=== PATIENT | female | born 1960 | race Caucasian/White ===

== ENCOUNTER 2017-08-31 05:57 | Inpatient (IN) | payer BC ==
--- NOTE | 2017-08-29 10:01 | HPE ---
DATE OF ADMISSION: 08/31/2017 ADMITTING DIAGNOSIS: Recurrent sigmoid diverticulitis. HISTORY OF THE PRESENT ILLNESS: The patient is a 57-year-old woman who was seen recently in the office for evaluation of recurrent diverticulitis. She has had several prior colonoscopies with most recent in February of 2015. She had some hyperplastic polyps biopsied. She has been noted to have diverticulosis and this was confirmed on the 2014 colonoscopy. She reports that in April of 2017 she was admitted to the hospital and placed on antibiotics for a diagnosis of diverticulitis. She had a followup CT scan after this and the treating physicians elected to continue her antibiotics for an additional 10 days because of concerns about continued inflammation. At one point, she was diagnosed with Clostridium difficile and this required additional treatment. Then, on the 07 of June, she was admitted at [facility] again with a diagnosis of diverticulitis. She remained in the hospital for 5 days on intravenous (IV) antibiotics. The patient has continued to have multiple bowel movements per day , which are small but formed. She has described intermittent left flank and left lower quadrant abdominal discomfort. Because of her recurring episodes of sigmoid diverticulitis, she was referred for consideration of resection. After discussing the option of surgery versus continued watchful waiting and treatment as necessary, the patient has decided to proceed with a laparoscopic sigmoid colectomy. She is scheduled for surgery on 08/31/2017. She will perform a full antibiotic and mechanical bowel prep in advance the day before. ALLERGIES: Patient reports an allergy to TETRACYCLINE. Her current medications include: - gemfibrozil 600 mg by mouth twice daily - an iron supplement twice daily - ibuprofen on an as-needed basis for discomfort - Zantac 150 mg by mouth twice daily - She is on a number of vitamins and supplements including cranberry extract, goji ramos extract, melatonin, probiotic, Stanback headache powders, vitamin B12 , and vitamin D. - She had received prescriptions for Flagyl and neomycin and Suprep for her preoperative mechanical and antibiotic bowel preparation. Medical history is significant for obstructive sleep apnea and she has a continuous positive airway pressure (CPAP) device for use. She has a history of gastroesophageal reflux. She has had a history of ovarian cancer. She has diverticulosis, hypercholesterolemia and hypertension. She has some degenerative disc disease. Surgical history is significant for a hysterectomy. She has had a tubal ligation. She has had colonoscopies in 2011, 2012, and 2014 and underwent a laparoscopic cholecystectomy in 2015. FAMILY HISTORY: Her father had heart disease and her mother was diagnosed with colon cancer at approximately age 74. SOCIAL HISTORY: Patient is a current smoker smoking approximately five cigarettes per day. She denies any alcohol use. She is . REVIEW OF SYSTEMS: Patient denies any weight gain or loss. She has had no fevers or chills. She denies any chest pain or palpitations. She has had no chronic cough, wheezing or shortness of breath. She denies any dysuria or hematuria. She does have some back discomfort at times. She denies any chronic severe headaches or seizures. There is no history of deep venous thrombosis (DVT) or pulmonary embolism. Physical exam shows that she is approximately 61 inch in height with a weight of approximately 78 kg, giving her a body mass index (BMI) of 32. She is alert, oriented and cooperative. She has anicteric sclerae. The mucous membranes are moist. The neck is supple without mass or adenopathy. She has no cervical bruit. Heart exam shows a regular rate and rhythm. The lungs are clear to auscultation bilaterally. The abdomen is mildly obese. The abdomen is soft with active bowel sounds. She has an old low abdominal scar consistent with her prior surgery. There is no sign of hernia. No masses appreciated. Her skin is warm and dry. Neurologically, she is alert and oriented times three, and the patient's affect is appropriate. IMPRESSION: 1. Diverticulosis with recurrent diverticulitis. 2. Hypertension. 3. Hypercholesterolemia. 4. Obstructive sleep apnea. 5. Gastroesophageal reflux disease. 6. Degenerative disc disease. 7. History of ovarian cancer. 8. History of Clostridium difficile colitis. PLAN: Patient is being admitted to undergo a laparoscopic sigmoid colectomy. She has performed a mechanical and antibiotic bowel preparation at home. In the office, she was counseled for the procedure to include indications for surgery and the risks. Risks include but are not limited to bleeding, infection, scarring, adverse drug reaction, need for further surgery, injury to internal organ, and anastomotic leak, and hernia. She had an opportunity to ask questions and desires to proceed with surgery as it was outlined. She is now being admitted for said surgery. IVETH
[~2017-08-31] VITALS: Ht 154.9 cm; Wt 80.4 kg
[~2017-08-31 05:57] MED LIST: AUGM875T28 PO; BENA25CA PO; CALC500T36 PO; CETI10TA PO; CIPR-249 PO; CRANCAP4 PO; CYAN25TA PO; DULC5TAB PO; EPIP0.3I10 IM; FISH1000 PO; FLAG500T PO; GEMF600T PO; HYDR-3363 PO; HYDRO50TAB PO; IRON65TA PO; MELA5TAB17 PO; MULTCAP PO; PERC5TAB12 PO; PRED10PA PO; PRED10TA2 PO; PROBCAP4 PO; RANI150T PO; VITA10002 PO; VITA1CAP40 PO; ZOFR20TA PO; [UNRECOGNIZED DRUG - CODE] PO; [UNRECOGNIZED DRUG - CODE] PO; [UNRECOGNIZED DRUG - CODE] PO; [UNRECOGNIZED DRUG - OTHER] PO
[2017-08-31] MEDS ORDERED: LR 1,000 ML IV SCH ×2 (06:00→12:45)
[2017-08-31] MEDS ORDERED: LIDOCAINE 1% MDV 20ML VIAL SC ONE (06:00)
[2017-08-31] MEDS ORDERED: ERTAPENEM SODIUM 1 GM in NS MINI-BAG PLUS 50 ML IV ONE (06:00)
[2017-08-31] MEDS ORDERED: ALVIMOPAN 12 MG CAPSULE (ENTEREG) PO ONE (06:00)
[2017-08-31] MEDS ORDERED: LR 1,000 ML IV ONE (06:15)
[2017-08-31] MEDS ORDERED: BUPIVACAINE HCL 0.25% 30 ML VIAL As Ordered ONE (06:47)
[2017-08-31] MEDS ORDERED: fentaNYL 250 MCG/5 ML INJECTION (J3010) As Ordered ONE (07:58)
[2017-08-31] MEDS ORDERED: PROPOFOL 500 MG/50 ML VIAL As Ordered ONE (07:58)
[2017-08-31] MEDS ORDERED: MIDAZOLAM INJ 2 MG/2 ML VIAL (J2250) As Ordered ONE (07:58)
[2017-08-31] MEDS ORDERED: fentaNYL 100 MCG/2 ML INJECTION (J3010) As Ordered ONE ×3 (07:58→12:18)
[2017-08-31] MEDS ORDERED: PHENYLephrine HCL 500 MCG/5 ML (100MCG/ML) SYRINGE (J2370) As Ordered ONE (08:07)
[2017-08-31] MEDS ORDERED: VECURONIUM BROMIDE 10 MG VIAL As Ordered ONE ×2 (08:53→09:31)
[2017-08-31] MEDS ORDERED: LIDOCAINE 2% INJ 100 MG/5 ML SDV (FOR ANES.) As Ordered ONE (08:53)
[2017-08-31] MEDS ORDERED: dexameTHASONE 4 MG/ML 1ML VIAL (J1100) As Ordered ONE (08:54)
[2017-08-31] MEDS ORDERED: ONDANSETRON 4MG/2ML VIAL (J2405) As Ordered ONE ×2 (08:54→11:15)
[2017-08-31] MEDS ORDERED: METOCLOPRAMIDE INJ 10MG/2ML VIAL (J2765) As Ordered ONE (08:54)
[2017-08-31] MEDS ORDERED: ePHEDrine SULFATE 25 MG/5 ML(5MG/ML) SYRINGE As Ordered ONE (08:59)
[2017-08-31] MEDS ORDERED: HYDROmorphone HCL 2 MG/ML 1ML VIAL (J1170) As Ordered ONE (09:58)
[2017-08-31] MEDS ORDERED: GLYCOPYRROLATE INJ 0.2 MG/ML 2 ML VIAL As Ordered ONE (11:15)
[2017-08-31] MEDS ORDERED: NEOSTIGMINE 10 MG/10 ML VIAL (J2710) As Ordered ONE (11:15)
[2017-08-31] MEDS ORDERED: METOCLOPRAMIDE INJ 10MG/2ML VIAL (J2765) IV PRN ×2 (11:45→12:45)
[2017-08-31] MEDS ORDERED: ONDANSETRON 4MG/2ML VIAL (J2405) IV PRN ×2 (11:45→12:45)
[2017-08-31] MEDS ORDERED: ACETAMINOPHEN TAB 650MG DOSE (2X325MG) PO PRN (11:45)
[2017-08-31] MEDS: MORPHINE 2 MG/ML 1ML SYRINGE IV PRN ×4 (12:20→12:35)
[2017-08-31] MEDS ORDERED: fentaNYL 100 MCG/2 ML INJECTION (J3010) IV PRN (12:45)
[2017-08-31] MEDS ORDERED: MORPHINE 2 MG/ML 1ML SYRINGE IV PRN (12:45)
[2017-08-31] MEDS ORDERED: PERCOCET 5MG/325MG TAB PO PRN (12:45)
[2017-08-31 13:00] VITALS: BP 122/72
[2017-08-31 13:30] VITALS: BP 114/56
[2017-08-31 14:00] VITALS: BP 117/57
[2017-08-31] MEDS: LR 1,000 ML IV SCH (14:02)
[2017-08-31 15:00] VITALS: BP 110/59
[2017-08-31] MEDS: KETOROLAC 30 MG/ML VIAL (J1885) IV SCH ×2 (15:29→18:39)
[2017-08-31 16:00] VITALS: BP 111/56
[2017-08-31] MEDS: NORCO, ANEXSIA 5/325MG TABLET (HYDROcodone/ACETAMINOPHEN) PO PRN (19:34)
--- NOTE | 2017-08-31 20:07 | RO ---
DATE OF PROCEDURE: 08/31/2017 PREOPERATIVE DIAGNOSIS: Sigmoid diverticulosis with history of recurrent diverticulitis. POSTOPERATIVE DIAGNOSES: 1. Sigmoid diverticulosis with history of recurrent diverticulitis. 2. Ventral incisional hernia. PROCEDURE PERFORMED: Laparoscopic sigmoid colectomy with a coloproctostomy, repair of ventral incisional hernia, and flexible sigmoidoscopic exam of anastomosis. SURGEON: Dr. Valentín Mcallister UPHOLSTERY DEPARTMENT SUPERVISOR: Dr. Arias ANESTHESIA: General. INDICATIONS FOR PROCEDURE: The patient is a 57-year-old woman who has had several episodes of diverticulitis involving her sigmoid colon, which shows marked thickening and significant diverticulosis. She is now for a laparoscopic sigmoid colectomy. DESCRIPTION OF PROCEDURE: The patient was placed under general endotracheal anesthesia. She was placed in a low lithotomy position with her legs in padded leg holders. Thromboembolism deterrents (TEDs) and sequentials were utilized. A Seaman catheter was inserted. Digital rectal examination revealed a small amount of liquid stool with some particles within the rectum. The anus was gently dilated, and there were no palpable lesions. The patient's abdomen and perineum were then prepped and draped sterilely. Local anesthesia was achieved at the trocar sites prior to insertion. A short supraumbilical midline incision was made through the old scar from her laparoscopic cholecystectomy. In deepening the incision into the abdominal wall , the patient was found to have a small incisional hernia. The hernia sac was dissected free from surrounding subcutaneous fat and then the hernia sac was excised and the hernia defect, which was approximately 1-1/2 to 2 cm was used as the port site for a 10 mm Jessi cannula. The abdomen was inflated with carbon dioxide, and the laparoscope was placed. Initial examination showed the liver to be markedly yellowed with blunted corners consistent with significant fibrofatty infiltration. There were a few reddened spots on the liver that appeared almost consistent with small telangiectasis. There was abundant omental fat covering the bowel. The patient was tilted to a steep Trendelenburg position. A 5 mm trocar was placed in the right midabdomen about at the level of the umbilicus and a 12 mm trocar was placed low in the right lower quadrant. Graspers were inserted. The omentum was elevated out of the lower abdomen, and the small bowel was also elevated out of the pelvis. Inspection of the colon revealed that there was a segment perhaps 15-20 cm in length of the sigmoid colon that was quite thickened. There were some filmy adhesions of this to the lateral pelvic sidewall on the left. In at least one area, there appeared to be some ongoing mild acute inflammation. There were surprisingly few adhesions in the pelvis. There was a fairly abrupt transition zone from the more normal appearing proximal sigmoid and descending colon to this thickened fibrotic area. The Harmonic scalpel was used to take down the adhesions along the lateral aspect of the sigmoid colon. The patient was found to have a small fibrotic appearing ovary adherent along the sidewall and had a matching ovary essentially on the right side of the pelvis. The dissection was carried up along the lateral aspect of the descending colon dividing the peritoneal reflection and mobilizing the descending colon medially. This was carried up to about the mid descending colon level. Attention was then turned distally. I identified the approximate point of transition from the sigmoid to the rectum. The peritoneum was scored and the mesentery of the rectosigmoid was partially opened in this area using the Harmonic scalpel to crsitina the distal extent of our anticipated dissection. The sigmoid was then elevated, and the point was selected for the proximal transection several centimeters proximal to the area of thickening of the sigmoid. The mesentery was opened using the Harmonic scalpel, and the colon was divided with an [place] stapler with a green load. The dissection was then carried distally using the Harmonic scalpel, freeing the sigmoid colon. A portion of the mesentery was taken with the bowel but as this was not a cancer operation, no attempt was made to resect the full extent of the mesentery. The dissection was carried distally with the Harmonic scalpel. Care was taken to ensure that there was no bleeding after vessels were divided. The dissection proceeded down to the rectosigmoid junction which had been marked previously. The mesentery in this area was opened to expose the wall of the rectum circumferentially. The proximal rectum was then divided again with a load of the linear cutter [place] stapler with a green load. The specimen was pulled up out of the pelvis, and the pelvis was irrigated. Some fibrofatty tissue along the staple line at the end of the rectum was then peeled back to expose the rectal wall to facilitate the anastomosis. Attention was then turned to the remaining sigmoid colon. There did not appear, at this time, to be adequate length to perform the anastomosis without tension. Therefore, the dissection was carried further up along the lateral aspect of the sigmoid and descending colons. This required repositioning the patient to a head-up position to expose this area more effectively. The dissection was carried all the way up to the splenic flexure and the colon was mobilized more thoroughly medially. Some of the mesentery of the remaining sigmoid colon was then divided to allow for greater mobility. After this had been performed, it was clear that there was adequate length for the anastomosis. The specimen and the end of the sigmoid colon were then grasped with graspers. The abdomen was deflated and the Jessi cannula was removed. The incision was extended inferiorly to a total distance of perhaps 7 cm. A Mobius retractor was inserted. The specimen was delivered through the wound and set aside to be sent for permanent pathology. The end of the sigmoid was then brought through the wound. Some fibrofatty tags at the end of the colon were removed. The staple line was excised. There were a couple of small diverticula that were incorporated into the opening of the colon. The colon was gently sized with a 29 mm EEA sizer and a 29 mm stapler was selected. A pursestring suture of #2-0 Prolene was placed in the end of the colon, and the anvil was then inserted and the pursestring tied down. A second pursestring was placed to reinforce the bowel around the post of the anvil. This was then irrigated and then reduced into the abdomen. At this point, we changed to the closing tray and the surgical team all changed gown and gloves. The Mobius retractor was removed. The fascia along the midline was closed with interrupted simple sutures of #1 Vicryl. The abdomen was then reinflated, and the patient was repositioned into a steep Trendelenburg position. The anvil of the stapler was then grasped with an anvil grasper. The pelvis was cleared of a small amount of blood. I moved to the perineum while Dr. Arias managed the abdominal portion of the procedure at this point. The 29 mm EEA stapler was inserted into the rectum and advanced up to the end of the rectal stump. The post of the stapler was advanced adjacent to the staple line and the anvil was attached. The stapler was then closed and fired. The stapler was removed and inspection revealed two excellent tissue doughnuts. At this point, the patient was taken slightly out of the Trendelenburg position. The pelvis was filled with saline. I inserted a colonoscope into the anus and advanced this above the anastomosis. A bowel clamp was placed by Dr. Arias to prevent air insufflation more proximally. The anastomosis was clearly identified. There was no active bleeding. The area was irrigated of a small amount of loose, greenish stool. The anastomosis appeared good. With insufflation of air, there was no leakage of air noted within the pelvis. The air was then removed. The anastomosis appeared to lie at approximately 17 cm from the anal verge. The colonoscope was removed. I changed gown and gloves and returned to the abdomen. The pelvis was irrigated and there was no bleeding. The patient was returned to a flat position. An Endo Close device was used to place a #1 Vicryl suture in the inner fascia and peritoneum of the 12-mm port site in the right lower quadrant. The abdomen was then vented through the single remaining 5 mm port in the right midabdomen. This was then removed. The incisions were then closed with buried #4-0 Vicryl and Steri-Strips. Light dressings were applied. The patient tolerated the procedure well without apparent complication. She was awakened in the operating room, extubated and moved to the recovery room in stable condition. IVETH
[2017-08-31] MEDS: GEMFIBROZIL 600 MG TAB PO SCH (21:47)
[2017-08-31] MEDS: ALVIMOPAN 12 MG CAPSULE (ENTEREG) PO SCH (21:47)
[2017-08-31] MEDS: FAMOTIDINE 20 MG TAB PO SCH (21:48)
[2017-08-31] MEDS: ENOXAPARIN 40 MG/0.4 ML SYRINGE (J1650) SC SCH (21:49)
[2017-08-31 22:00] VITALS: BP 114/67
[2017-09-01] MEDS: KETOROLAC 30 MG/ML VIAL (J1885) IV SCH ×2 (01:23→06:31)
[2017-09-01] MEDS: LR 1,000 ML IV SCH (01:23)
[2017-09-01 02:00] VITALS: BP 111/65
[2017-09-01 06:00] VITALS: BP 125/77
[2017-09-01 07:41] LABS: BASO % 0.5 % (0.0-1.0); EOS # 0.1 10^3/uL (0.0-0.50); EOS % 1.4 % (0.0-3.0); IMMATURE GRANULOCYTE % 0.2 % (0-0); LYMPH # 2.1 10^3/uL (1.5-4.5); MEAN CORPUSCULAR HEMOGLOBIN 32.7 pg (27.0-33.0); MEAN CORPUSCULAR HGB CONC 33.1 g/dl (32.0-36.5); MEAN CORPUSCULAR VOLUME 98.6 fl (80.0-96.0); MONO # 0.7 10^3/uL (0.0-0.8); MONO % 8.4 % (0.0-5.0); NEUTROPHILS # 5.8 10^3/uL (1.8-7.7); NEUTROPHILS % 65.5 % (36.0-66.0); PLATELET COUNT, AUTOMATED 214 10^3/uL (150-450); RED CELL DISTRIBUTION WIDTH 13.1 % (11.5-14.5); WHITE BLOOD COUNT 8.8 10^3/uL (4.0-10.0)
[2017-09-01 07:59] LABS: ANION GAP 6 MEQ/L (8-16); BLOOD UREA NITROGEN 16 MG/DL (7-18); CALCIUM LEVEL 8.4 MG/DL (8.5-10.1); CARBON DIOXIDE LEVEL 29 MEQ/L (21-32); CHLORIDE LEVEL 107 MEQ/L (98-107); CREATININE FOR GFR 0.76 MG/DL (0.55-1.02); GLOMERULAR FILTRATION RATE > 60.0 (>51); GLUCOSE, FASTING 134 MG/DL (70-105); POTASSIUM SERUM 4.1 MEQ/L (3.5-5.1); SODIUM LEVEL 142 MEQ/L (136-145)
[2017-09-01] MEDS: ALVIMOPAN 12 MG CAPSULE (ENTEREG) PO SCH ×2 (08:44→21:01)
[2017-09-01] MEDS: FAMOTIDINE 20 MG TAB PO SCH ×2 (08:44→21:01)
[2017-09-01] MEDS: GEMFIBROZIL 600 MG TAB PO SCH ×2 (08:44→21:01)
[2017-09-01] MEDS: NORCO, ANEXSIA 5/325MG TABLET (HYDROcodone/ACETAMINOPHEN) PO PRN ×3 (09:03→18:43)
[2017-09-01 10:00] VITALS: BP 133/75
[2017-09-01 14:00] VITALS: BP 152/72
--- NOTE | 2017-09-01 15:03 | IPN ---
DATE: 09/01/2017 HISTORY: The patient is now postop day #1 from a laparoscopic sigmoid colectomy for diverticulosis with recurrent episodes of diverticulitis. She appears to be doing excellently postop with minimal discomfort and is tolerating liquids well with no nausea or vomiting and she has had a return of flatus. VITAL SIGNS: The patient is afebrile. Her pulse this morning is 82 with a blood pressure of 133/75. Room air saturation is normal. Intake and output shows 3900 in yesterday with 1400 out. She has a urine output recorded this morning of 150 , but she probably has a liter in her Seaman bag on the side of the bed right now. PHYSICAL EXAMINATION: The patient is alert, oriented and comfortable. Heart exam shows a regular rate and rhythm. The lungs are clear. The abdomen is obese, but soft. She has active bowel sounds. Her incisions are clean with no evidence of hematoma. LABS: Laboratory studies show a white count of 9, hemoglobin 12, hematocrit 36 and a normal differential count. Her chemistry profile this morning is normal except for a fasting glucose of 134. Interestingly, her pathology report is already back and she had a hernia sac which was interpreted as a hernia sac and her colon was diagnosed as diverticulosis and diverticulitis. IMPRESSION: Excellent progress postop day #1 from laparoscopic sigmoid colectomy. PLAN: The patient's diet will be advanced to regular as tolerated. Her Seaman catheter will be removed and her IV fluid stopped. I counseled her that she will likely be ready for discharge in the next 1-2 days if all goes well. She should be up ambulating at least several times today. IVETH
[2017-09-01 18:00] VITALS: BP 142/83
[2017-09-01] MEDS: ENOXAPARIN 40 MG/0.4 ML SYRINGE (J1650) SC SCH (21:01)
[2017-09-01 22:00] VITALS: BP 138/69
[2017-09-02 02:00] VITALS: BP 133/71
[2017-09-02 06:00] VITALS: BP 131/91
[2017-09-02] MEDS: NORCO, ANEXSIA 5/325MG TABLET (HYDROcodone/ACETAMINOPHEN) PO PRN ×2 (06:07→10:33)
[2017-09-02] MEDS: FAMOTIDINE 20 MG TAB PO SCH (08:14)
[2017-09-02] MEDS: ALVIMOPAN 12 MG CAPSULE (ENTEREG) PO SCH (08:14)
[2017-09-02] MEDS: GEMFIBROZIL 600 MG TAB PO SCH (08:14)
[2017-09-02] MEDS ORDERED: NORCOTAB PO (09:04)
[2017-09-02 10:00] VITALS: BP 131/81
== END 2017-09-02 13:49 | disposition home or self-care (01) | DRG 221 ==
LOC: M OR 05:57 → M MSPAV 13:11
PROVIDERS: ADMIT Surgery; ATTEND Surgery
PROC: 0DTN4ZZ Resection of Sigmoid Colon, Percutaneous Endoscopic Approach (ICD-10-PCS; 2017-08-31)
PROC: 0WQF4ZZ Repair Abdominal Wall, Percutaneous Endoscopic Approach (ICD-10-PCS; principal; 2017-08-31 07:30)
DX: K57.32 Diverticulitis of large intestine without perforation or abscess without bleeding (principal); E66.9 Obesity, unspecified; I10 Essential (primary) hypertension; Z68.32 Body mass index [BMI] 32.0-32.9, adult; Z79.899 Other long term (current) drug therapy; Z88.8 Allergy status to other drugs, medicaments and biological substances; G47.33 Obstructive sleep apnea (adult) (pediatric); K21.9 Gastro-esophageal reflux disease without esophagitis; Z85.43 Personal history of malignant neoplasm of ovary; E78.00 Pure hypercholesterolemia, unspecified; F17.210 Nicotine dependence, cigarettes, uncomplicated; K43.2 Incisional hernia without obstruction or gangrene

== ENCOUNTER 2018-01-22 15:31 | Emergency (ER) | payer BC ==
[2018-01-22] MEDS ORDERED: ONDANSETRON 4MG/2ML VIAL (J2405) IV (16:45)
[2018-01-22] MEDS ORDERED: MORPHINE 2 MG/ML 1ML SYRINGE (J2270) IV (16:45)
[2018-01-22] MEDS: GASTROGRAFIN SOLUTION 30ML PO (17:15)
[2018-01-22 17:30] LABS: PROTHROMBIN TIME 13.3 SECONDS (12.4-14.5)
[2018-01-22 17:31] LABS: BASO # 0.1 10^3/uL (0.0-0.2); BASO % 0.8 % (0.0-1.0); EOS # 0.2 10^3/uL (0.0-0.50); EOS % 1.8 % (0.0-3.0); HEMATOCRIT 41.7 % (36.0-47.0); HEMOGLOBIN 14.3 g/dl (12.0-16.0); IMMATURE GRANULOCYTE % 1.4 % (0-3.0); LYMPH # 2.4 10^3/uL (1.5-4.5); LYMPH % 25.3 % (24.0-44.0); MEAN CORPUSCULAR HEMOGLOBIN 32.3 pg (27.0-33.0); MEAN CORPUSCULAR HGB CONC 34.3 g/dl (32.0-36.5); MEAN CORPUSCULAR VOLUME 94.1 fl (80.0-96.0); MONO # 0.7 10^3/uL (0.0-0.8); MONO % 7.2 % (0.0-5.0); NEUTROPHILS # 5.9 10^3/uL (1.8-7.7); NEUTROPHILS % 63.5 % (36.0-66.0); PLATELET COUNT, AUTOMATED 273 10^3/uL (150-450); RED BLOOD COUNT 4.43 10^6/uL (4.00-5.40); RED CELL DISTRIBUTION WIDTH 12.7 % (11.5-14.5); WHITE BLOOD COUNT 9.3 10^3/uL (4.0-10.0)
[2018-01-22 17:35] LABS: ALBUMIN 4.3 GM/DL (3.2-5.2); ALBUMIN/GLOBULIN RATIO 1.26 (1.00-1.93); ALKALINE PHOSPHATASE 196 U/L (45-117); ALT/SGPT 64 U/L (12-78); ANION GAP 9 MEQ/L (8-16); AST/SGOT 64 U/L (7-37); BILIRUBIN,DIRECT 0.1 MG/DL (0.0-0.2); BILIRUBIN,TOTAL 0.3 MG/DL (0.2-1.0); BLOOD UREA NITROGEN 13 MG/DL (7-18); CALCIUM LEVEL 9.4 MG/DL (8.5-10.1); CARBON DIOXIDE LEVEL 24 MEQ/L (21-32); CHLORIDE LEVEL 108 MEQ/L (98-107); CREATININE FOR GFR 0.96 MG/DL (0.55-1.30); GLOMERULAR FILTRATION RATE > 60.0 (>51); GLUCOSE, FASTING 178 MG/DL (70-100); LIPASE 284 U/L (73-393); POTASSIUM SERUM 4.5 MEQ/L (3.5-5.1); SODIUM LEVEL 141 MEQ/L (136-145); TOTAL PROTEIN 7.7 GM/DL (6.4-8.2)
[2018-01-22] MEDS ORDERED: ISOVUE-370 76% 100ML VIAL (Q9967) As Ordered (18:13)
== END 2018-01-22 19:27 | disposition home or self-care (01) ==
LOC: M ED 15:31
DX: K42.9 Umbilical hernia without obstruction or gangrene (principal); K76.0 Fatty (change of) liver, not elsewhere classified; K57.30 Diverticulosis of large intestine without perforation or abscess without bleeding; D35.00 Benign neoplasm of unspecified adrenal gland; F17.200 Nicotine dependence, unspecified, uncomplicated; Z79.899 Other long term (current) drug therapy; Z88.1 Allergy status to other antibiotic agents; Z91.018 Allergy to other foods
CPT/HCPCS: Q9963

== ENCOUNTER 2018-02-13 05:49 | Inpatient (IN) | payer BC ==
[2018-02-13] MEDS ORDERED: LR 1,000 ML IV (06:15)
[2018-02-13] MEDS: LR 1,000 ML IV ×4 (06:15→20:24)
[2018-02-13 07:17] LABS: BEDSIDE GLUCOSE 158 MG/DL (70-105)
[2018-02-13] MEDS ORDERED: fentaNYL 250 MCG/5 ML INJECTION (J3010) As Ordered (08:00)
[2018-02-13] MEDS ORDERED: ROCURONIUM BROMIDE 50 MG/5 ML VIAL As Ordered ×2 (08:00→08:47)
[2018-02-13] MEDS ORDERED: ONDANSETRON 4MG/2ML VIAL (J2405) As Ordered (08:00)
[2018-02-13] MEDS ORDERED: LIDOCAINE 2% INJ 100 MG/5 ML SDV (FOR ANES.) As Ordered (08:00)
[2018-02-13] MEDS ORDERED: ePHEDrine SULFATE 25 MG/5 ML(5MG/ML) SYRINGE As Ordered (08:00)
[2018-02-13] MEDS ORDERED: KETOROLAC 60 MG/2 ML VIAL (J1885) As Ordered (08:00)
[2018-02-13] MEDS ORDERED: dexameTHASONE 4 MG/ML 1ML VIAL (J1100) As Ordered (08:00)
[2018-02-13] MEDS ORDERED: PROPOFOL 200 MG/20 ML VIAL As Ordered ×2 (08:00→10:30)
[2018-02-13] MEDS ORDERED: MIDAZOLAM INJ 2 MG/2 ML VIAL (J2250) As Ordered (08:00)
[2018-02-13] MEDS ORDERED: GLYCOPYRROLATE INJ 0.2 MG/ML 2 ML VIAL As Ordered ×2 (08:12)
[2018-02-13] MEDS ORDERED: NEOSTIGMINE 10 MG/10 ML VIAL (J2710) As Ordered (08:12)
[2018-02-13] MEDS: BUPIVACAINE HCL 0.25% 30 ML VIAL As Ordered (10:45)
[2018-02-13] MEDS ORDERED: PERCOCET 5MG/325MG TAB As Ordered (11:09)
[2018-02-13] MEDS ORDERED: fentaNYL 100 MCG/2 ML INJECTION (J3010) As Ordered (11:09)
[2018-02-13] MEDS ORDERED: NALBUPHINE HCL 10 MG/ML AMP (J2300) IV (11:15)
[2018-02-13] MEDS ORDERED: EPIDURAL/PCA KEYS XX (11:15)
[2018-02-13] MEDS ORDERED: GLUCOSE 4 GM CHEW TABLET PO (11:15)
[2018-02-13] MEDS ORDERED: GLUCAGON FOR INJ 1 MG VIAL (J1610) SC (11:15)
[2018-02-13] MEDS ORDERED: NALOXONE INJ 0.4 MG/1 ML VIAL (J2310) IV (11:15)
[2018-02-13] MEDS ORDERED: DEXTROSE 50% 50 ML SYRINGE IV (11:15)
[2018-02-13] MEDS ORDERED: ONDANSETRON 4MG/2ML VIAL (J2405) IV ×2 (11:15→11:30)
[2018-02-13] MEDS ORDERED: diphenhydrAMINE INJ 50MG/ML VIAL (J1200) IV (11:15)
[2018-02-13] MEDS: PERCOCET 5MG/325MG TAB PO ×2 (11:17→11:55)
[2018-02-13 11:20] LABS: BEDSIDE GLUCOSE 209 MG/DL (70-105)
[2018-02-13] MEDS ORDERED: fentaNYL 100 MCG/2 ML INJECTION (J3010) IV (11:30)
[2018-02-13] MEDS ORDERED: MORPHINE 1MG/ML IN 0.9% NACL 100ML IV BAG As Ordered (12:59)
[2018-02-13] MEDS: MORPHINE 1MG/ML IN 0.9% NACL 100ML IV BAG IV (13:13)
[2018-02-13] MEDS: HumaLOG INSULIN (NovoLOG) PER UNIT SC ×3 (13:15→20:47)
[2018-02-13 13:41] LABS: BEDSIDE GLUCOSE 199 MG/DL (70-105)
[2018-02-13] MEDS: ACETAMINOPHEN TAB 650MG DOSE (2X325MG) PO ×3 (14:13→23:20)
[2018-02-13] MEDS: CEFAZOLIN SOD 1 GM in APPROPRIATE DILUENT 1 EA IV (16:51)
[2018-02-13] MEDS: KETOROLAC 30 MG/ML VIAL (J1885) IV ×2 (17:01→23:00)
[2018-02-13 17:29] LABS: BEDSIDE GLUCOSE 204 MG/DL (70-105)
[2018-02-13] MEDS: DOCUSATE SODIUM 100 MG CAP PO (20:50)
[2018-02-13] MEDS: GEMFIBROZIL 600 MG TAB PO (20:50)
[2018-02-13 20:53] LABS: BEDSIDE GLUCOSE 150 MG/DL (70-105)
[2018-02-14] MEDS: ACETAMINOPHEN TAB 650MG DOSE (2X325MG) PO ×4 (02:54→23:50)
[2018-02-14] MEDS: KETOROLAC 30 MG/ML VIAL (J1885) IV ×4 (04:18→23:52)
[2018-02-14] MEDS: DOCUSATE SODIUM 100 MG CAP PO ×2 (08:52→20:43)
[2018-02-14] MEDS: CEFAZOLIN SOD 1 GM in APPROPRIATE DILUENT 1 EA IV ×2 (08:52)
[2018-02-14] MEDS: GEMFIBROZIL 600 MG TAB PO ×2 (08:52→20:43)
[2018-02-14] MEDS: HumaLOG INSULIN (NovoLOG) PER UNIT SC ×4 (08:53→21:00)
[2018-02-14 11:28] LABS: BEDSIDE GLUCOSE 131 MG/DL (70-105)
[2018-02-14 12:04] LABS: BEDSIDE GLUCOSE 141 MG/DL (70-105)
[2018-02-14 17:48] LABS: BEDSIDE GLUCOSE 162 MG/DL (70-105)
[2018-02-14] MEDS: LR 1,000 ML IV (21:21)
[2018-02-14] MEDS: ENOXAPARIN 40 MG/0.4 ML SYRINGE (J1650) SC (21:21)
[2018-02-14 21:29] LABS: BEDSIDE GLUCOSE 137 MG/DL (70-105)
[2018-02-15] MEDS: ACETAMINOPHEN TAB 650MG DOSE (2X325MG) PO (05:49)
[2018-02-15] MEDS: KETOROLAC 30 MG/ML VIAL (J1885) IV (05:49)
[2018-02-15 07:26] LABS: BASO % 0.5 % (0.0-1.0); EOS # 0.3 10^3/uL (0.0-0.50); EOS % 3.8 % (0.0-3.0); HEMATOCRIT 34.7 % (36.0-47.0); HEMOGLOBIN 11.2 g/dl (12.0-15.5); IMMATURE GRANULOCYTE % 0.4 % (0-3.0); LYMPH # 2.1 10^3/uL (1.5-4.5); LYMPH % 28.4 % (24.0-44.0); MEAN CORPUSCULAR HEMOGLOBIN 31.5 pg (27.0-33.0); MEAN CORPUSCULAR HGB CONC 32.3 g/dl (32.0-36.5); MEAN CORPUSCULAR VOLUME 97.7 fl (80.0-96.0); MONO # 0.7 10^3/uL (0.0-0.8); MONO % 10.2 % (0.0-5.0); NEUTROPHILS # 4.1 10^3/uL (1.8-7.7); NEUTROPHILS % 56.7 % (36.0-66.0); PLATELET COUNT, AUTOMATED 211 10^3/uL (150-450); RED BLOOD COUNT 3.55 10^6/uL (4.00-5.40); RED CELL DISTRIBUTION WIDTH 12.9 % (11.5-14.5); WHITE BLOOD COUNT 7.3 10^3/uL (4.0-10.0)
[2018-02-15] MEDS: HumaLOG INSULIN (NovoLOG) PER UNIT SC (07:30)
[2018-02-15] MEDS ORDERED: MORPHINE 4 MG/ML 1ML VIAL/SYRINGE (J2270) IV (07:45)
[2018-02-15 07:55] LABS: ANION GAP 4 MEQ/L (8-16); BLOOD UREA NITROGEN 21 MG/DL (7-18); CALCIUM LEVEL 9.2 MG/DL (8.5-10.1); CARBON DIOXIDE LEVEL 30 MEQ/L (21-32); CHLORIDE LEVEL 106 MEQ/L (98-107); CREATININE FOR GFR 0.84 MG/DL (0.55-1.30); GLOMERULAR FILTRATION RATE > 60.0 (>51); GLUCOSE, FASTING 127 MG/DL (70-100); POTASSIUM SERUM 4.4 MEQ/L (3.5-5.1); SODIUM LEVEL 140 MEQ/L (136-145)
[2018-02-15] MEDS ORDERED: ACETAMINOPHEN TAB 650MG DOSE (2X325MG) PO (08:00)
[2018-02-15] MEDS: DOCUSATE SODIUM 100 MG CAP PO ×2 (09:09→20:18)
[2018-02-15] MEDS: GEMFIBROZIL 600 MG TAB PO ×2 (09:09→20:18)
[2018-02-15] MEDS: metFORMIN (GLUCOPHAGE) 500 MG TAB PO ×2 (09:10→17:58)
[2018-02-15] MEDS: PERCOCET 5MG/325MG TAB PO ×3 (10:40→20:19)
[2018-02-15] MEDS: ENOXAPARIN 40 MG/0.4 ML SYRINGE (J1650) SC (22:00)
[2018-02-16] MEDS: PERCOCET 5MG/325MG TAB PO ×3 (00:51→10:33)
[2018-02-16] MEDS: metFORMIN (GLUCOPHAGE) 500 MG TAB PO (08:50)
[2018-02-16] MEDS: DOCUSATE SODIUM 100 MG CAP PO (08:50)
[2018-02-16] MEDS: GEMFIBROZIL 600 MG TAB PO (08:50)
== END 2018-02-16 10:42 | disposition home or self-care (01) | DRG 227 ==
LOC: M SDC 05:49 → M PED 12:55
PROVIDERS: Surgery
PROC: 0WUF0JZ Supplement Abdominal Wall with Synthetic Substitute, Open Approach (ICD-10-PCS; principal; 2018-02-13 07:31)
PROC: 0WUF07Z Supplement Abdominal Wall with Autologous Tissue Substitute, Open Approach (ICD-10-PCS; 2018-02-13 07:31)
PROC: 0KNL0ZZ Release Left Abdomen Muscle, Open Approach (ICD-10-PCS; 2018-02-13 07:31)
PROC: 0KNK0ZZ Release Right Abdomen Muscle, Open Approach (ICD-10-PCS; 2018-02-13 07:31)
DX: K43.2 Incisional hernia without obstruction or gangrene (principal); E55.9 Vitamin D deficiency, unspecified; I10 Essential (primary) hypertension; E78.00 Pure hypercholesterolemia, unspecified; G47.33 Obstructive sleep apnea (adult) (pediatric); K21.9 Gastro-esophageal reflux disease without esophagitis; E11.9 Type 2 diabetes mellitus without complications; Z79.899 Other long term (current) drug therapy

== ENCOUNTER → 2018-10-12 | Outpatient (CLI) | payer BC ==
[2018-10-12 15:08] LABS: BASO # 0.1 10^3/uL (0.0-0.2); BASO % 0.8 % (0.0-1.0); EOS # 0.3 10^3/uL (0.0-0.50); EOS % 3.1 % (0.0-3.0); HEMATOCRIT 44.2 % (36.0-47.0); HEMOGLOBIN 15.1 g/dl (12.0-15.5); IMMATURE GRANULOCYTE % 0.5 % (0-3.0); LYMPH # 2.5 10^3/uL (1.5-4.5); LYMPH % 28.9 % (24.0-44.0); MEAN CORPUSCULAR HEMOGLOBIN 32.6 pg (27.0-33.0); MEAN CORPUSCULAR HGB CONC 34.2 g/dl (32.0-36.5); MEAN CORPUSCULAR VOLUME 95.5 fl (80.0-96.0); MONO # 0.5 10^3/uL (0.0-0.8); MONO % 5.8 % (0.0-5.0); NEUTROPHILS # 5.2 10^3/uL (1.8-7.7); NEUTROPHILS % 60.9 % (36.0-66.0); PLATELET COUNT, AUTOMATED 273 10^3/uL (150-450); RED BLOOD COUNT 4.63 10^6/uL (4.00-5.40); RED CELL DISTRIBUTION WIDTH 12.6 % (11.5-14.5); WHITE BLOOD COUNT 8.5 10^3/uL (4.0-10.0)
[2018-10-12 15:21] LABS: ALBUMIN 3.8 GM/DL (3.2-5.2); ALBUMIN/GLOBULIN RATIO 1.06 (1.00-1.93); ALKALINE PHOSPHATASE 134 U/L (45-117); ALT/SGPT 46 U/L (12-78); ANION GAP 8 MEQ/L (8-16); AST/SGOT 16 U/L (7-37); BILIRUBIN,TOTAL 0.3 MG/DL (0.2-1.0); BLOOD UREA NITROGEN 13 MG/DL (7-18); CALCIUM LEVEL 9.8 MG/DL (8.5-10.1); CARBON DIOXIDE LEVEL 24 MEQ/L (21-32); CHLORIDE LEVEL 109 MEQ/L (98-107); CREATININE FOR GFR 0.81 MG/DL (0.55-1.30); FREE T4 1.27 NG/DL (0.76-1.46); GLOMERULAR FILTRATION RATE > 60.0 (>51); GLUCOSE, FASTING 111 MG/DL (70-100); POTASSIUM SERUM 4.9 MEQ/L (3.5-5.1); SODIUM LEVEL 141 MEQ/L (136-145); THYROID STIMULATING HORMONE 0.612 uIU/ML (0.358-3.740); TOTAL PROTEIN 7.4 GM/DL (6.4-8.2)
== END ==
LOC: M WUC 11:03
DX: R10.84 Generalized abdominal pain (principal)
CPT/HCPCS: 84443

== ENCOUNTER 2018-10-17 09:29 | Emergency (ER) | payer BC | END 2018-10-17 10:02 | disposition home or self-care (01) | LOC: M ED 09:29 | DX: M54.10 Radiculopathy, site unspecified (principal); Z79.899 Other long term (current) drug therapy; Z88.1 Allergy status to other antibiotic agents; Z91.018 Allergy to other foods; F17.210 Nicotine dependence, cigarettes, uncomplicated | CPT/HCPCS: 99282 ==

== ENCOUNTER → 2018-11-16 | Outpatient (CLI) | payer BC ==
[~2018-11-16] MED LIST changes: -CYAN25TA PO; +CYCL5TAB PO; -GEMF600T PO; +GEMF600T5 PO; +METF500T13 PO; +NORCOTAB PO; +PERCOCET PO; +PRAV40TA2; +PRED20TA PO; +RANI75TA15 PO; -VITA1CAP40 PO; +VITA250T50 PO; +VITA50005 PO; -ZOFR20TA PO; +ZOFR4TAB14 PO; +ZOFR4TAB16 PO
[2018-11-16 13:04] LABS: ALBUMIN 3.9 GM/DL (3.2-5.2); ALT/SGPT 33 U/L (12-78); BILIRUBIN,DIRECT 0.1 MG/DL (0.0-0.2); BILIRUBIN,TOTAL 0.3 MG/DL (0.2-1.0); FERRITIN 334 NG/ML (8-252); IRON (FE) 114 UG/DL (50-170); PERCENT SATURATION 25.7 % (13.2-45.0); TOTAL IRON BINDING CAPACITY 444 UG/DL (250-450); TOTAL PROTEIN 7.4 GM/DL (6.4-8.2)
[2018-11-16 13:35] LABS: HEPATITIS B SURFACE ANTIBODY NEGATIVE (POSITIVE)
[2018-11-16 13:45] LABS: HEPATITIS B SURFACE ANTIGEN NEGATIVE (NEGATIVE)
[2018-11-16 14:12] LABS: HEPATITIS C VIRUS ABY INDEX 0.1 INDEX (<0.8)
[2018-11-16 14:15] LABS: HEPATITIS A ANTIBODY IGM NEGATIVE (NEGATIVE)
[2018-11-20 14:13] LABS: ANTI-MITOCHONDRIAL ANTIBODY 4.5 Units (0.0-20.0); ANTI-SMOOTH MUSCLE ANTIBODY 14 Units (0-19); ANTINUCLEAR ANTIBODIES DIRECT Negative (Negative); HEPATITIS A IgG TOTAL Negative (Negative); IGASUB3 32.7 mg/dL (13.4-97.9); IgA SERUM (part of Subclasses) 208 mg/dL (87-352); LIVER-KIDNEY MICROSOMAL ABY 0.7 Units (0.0-20.0); TISSUE TRANSGLUTAMINASE IgA <2 U/mL (0-3)
== END ==
LOC: M WUC 10:14
PROVIDERS: ATTEND Internal Medicine Gastroenterology
DX: R94.5 Abnormal results of liver function studies (principal)

== ENCOUNTER → 2018-11-26 | Outpatient (CLI) | payer BC ==
--- NOTE | 2018-11-27 06:43 | REP ---
Clinical: Lung screening. History nicotine dependence. Comparison: None Technique: Axial low-dose noncontrast images from the thoracic inlet to the upper abdomen using lung screening technique. Findings: The lung yanez are well-aerated. Few small areas of non-solid opacity primarily noted in the right apex and apical left lower lobe measure up to approximately 8 mm. No consolidation, significant nodule or mass lesion otherwise appreciated. No pneumothorax. Tracheobronchial tree is grossly patent. Impression: Lung-RADS category III. Management recommendations include 6-month low-dose CT follow-up examination with a probability of malignancy at 1-2%. Electronically Signed by Peter Weeks MD 11/27/2018 06:34 A
== END ==
LOC: M RAD 09:39
PROVIDERS: ATTEND Nurse Practitioner Family
DX: Z12.2 Encounter for screening for malignant neoplasm of respiratory organs (principal); F17.200 Nicotine dependence, unspecified, uncomplicated; R91.8 Other nonspecific abnormal finding of lung field

== ENCOUNTER → 2018-12-11 | Outpatient (CLI) | payer BC ==
[2018-12-11 12:29] LABS: ALBUMIN 4.3 GM/DL (3.2-5.2); BILIRUBIN,DIRECT 0.2 MG/DL (0.0-0.2); BILIRUBIN,TOTAL 0.5 MG/DL (0.2-1.0); CHOLESTEROL RISK RATIO 8.1 (<5); TOTAL PROTEIN 7.9 GM/DL (6.4-8.2)
== END ==
LOC: M WUC 08:59
PROVIDERS: ATTEND Internal Medicine Endocrinology, Diabetes & Metabolism
DX: E78.2 Mixed hyperlipidemia (principal)

== ENCOUNTER → 2019-11-14 | Outpatient (CLI) | payer OTHER ==
[~2019-11-14] MED LIST changes: -CALC500T36 PO; +CALC500T61 PO; +CYAN100049 PO; +HYDR-3715 PO; +HYDR-4274 PO; -HYDRO50TAB PO; -MELA5TAB17 PO; +MELA5TAB31 PO; -NORCOTAB PO; -VITA10002 PO
[2019-11-14 12:54] LABS: BLOOD UREA NITROGEN 16 MG/DL (7-18); CREATININE FOR GFR 0.77 MG/DL (0.55-1.30); GLOMERULAR FILTRATION RATE > 60.0 (>51)
== END ==
LOC: M WUC 10:20
PROVIDERS: ATTEND Nurse Practitioner Adult Health
DX: R91.8 Other nonspecific abnormal finding of lung field (principal)

== ENCOUNTER → 2019-11-26 | Outpatient (CLI) | payer OTHER ==
[~2019-11-26] MED LIST changes: +ISOVUE-370 76% 100ML VIAL (Q9967) As Ordered ONE
--- NOTE | 2019-11-27 06:09 | REP ---
Clinical: Follow up abnormal lung findings. Technique: Axial contrast enhanced images from the thoracic inlet to the upper abdomen with coronal and sagittal re-formations using 100 ml Isovue 370 intravenous contrast material. Comparison: 11/26/2018. Findings: The bilateral lung yanez are well-aerated and clear. The previously identified non solid opacities have resolved. No consolidation, significant nodule or mass lesion. No effusion. No pneumothorax. Tracheobronchial tree is patent. Mediastinal and hilar lymph nodes measuring up to approximately 10 mm short axis are nonspecific. Thoracic aorta, pulmonary vasculature and heart/pericardium are relatively age-appropriate. Minimal atherosclerotic changes to the coronary arteries noted. Surrounding musculoskeletal structures are intact. Impression: 1. No acute mediastinal or pleuroparenchymal process appreciated. 2. Previously identified scattered non solid opacities have resolved. Electronically Signed by Peter Weeks MD 11/27/2019 06:00 A
== END ==
LOC: M RAD 12:49
PROVIDERS: ATTEND Nurse Practitioner Adult Health
DX: R91.8 Other nonspecific abnormal finding of lung field (principal)
CPT/HCPCS: 71260; Q9967

== ENCOUNTER 2020-06-11 10:05 | Day surgery (SDC) | payer OTHER ==
[~2020-06-11] VITALS: Ht 154.9 cm; Wt 74.8 kg
[~2020-06-11 10:05] MED LIST changes: +ATOR40TA75 PO; +CINN500C15 PO; +CLAR10CA3 PO; -ISOVUE-370 76% 100ML VIAL (Q9967) As Ordered ONE; +LIDOCAINE 2% 100MG/5ML SDV (FOR ANES.) As Ordered ONE; -MELA5TAB31 PO; +MELA5TAB36 PO; +TRAD5TAB PO; +propofoL 200 MG/20 ML VIAL As Ordered ONE
--- NOTE | 2020-07-22 11:26 | ROOR ---
Patient Name: Zulma Sun Procedure Date: 06/11/2020 11:31 AM Date of : 1960 Age: 59 Room: [facility] Gender: Female Note Status: Finalized Procedure: Colonoscopy Indications: High risk colon cancer surveillance: Personal history of colonic polyps, Sigmoid colectomy 08/2017 for diverticular disease. Providers: Valentín Mcallister MD Referring MD: LISA LOUISE NP Requesting Provider: Medicines: Monitored Anesthesia Care Complications: No immediate complications. Procedure: Pre-Anesthesia Assessment: - Prior to the procedure, a History and Physical was performed, and patient medications and allergies were reviewed. The patient is competent. The risks and benefits of the procedure and the sedation options and risks were discussed with the patient. All questions were answered and informed consent was obtained. Patient identification and proposed procedure were verified by the physician, the nurse and the curing room worker in the procedure room. Mental Status Examination: alert and oriented. Airway Examination: normal oropharyngeal airway and neck mobility. Prophylactic Antibiotics: The patient does not require prophylactic antibiotics. Prior Anticoagulants: The patient has taken no previous anticoagulant or antiplatelet agents. ASA Grade Assessment: III - A patient with severe systemic disease. After reviewing the risks and benefits, the patient was deemed in satisfactory condition to undergo the procedure. The anesthesia plan was to use monitored anesthesia care (MAC). Immediately prior to administration of medications, the patient was re-assessed for adequacy to receive sedatives. The heart rate, respiratory rate, oxygen saturations, blood pressure, adequacy of pulmonary ventilation, and response to care were monitored throughout the procedure. The physical status of the patient was re-assessed after the procedure. The Colonoscope was introduced through the anus and advanced to the cecum, identified by appendiceal orifice and ileocecal valve. The colonoscopy was performed without difficulty. The patient tolerated the procedure well. The quality of the bowel preparation was adequate to identify polyps 6 mm and larger in size. Findings: The perianal and digital rectal examinations were normal. There was evidence of a prior end-to-end colo-rectal anastomosis in the proximal rectum. This was patent and was characterized by healthy appearing mucosa. The anastomosis was traversed. A few medium-mouthed diverticula were found in the sigmoid colon and distal descending colon. Impression: - Patent end-to-end colo-rectal anastomosis, characterized by healthy appearing mucosa. - Diverticulosis in the sigmoid colon and in the distal descending colon. - No specimens collected. Recommendation: - Discharge patient to home. - Resume previous diet. - Continue present medications. - Repeat colonoscopy in 5 years for surveillance. Valentín Mcallister MD Valentín Mcallister MD 06/11/2020 12:11:00 PM Number of Addenda: 0 Note Initiated On: 06/11/2020 11:31 AM Estimated Blood Loss: Estimated blood loss: none.
== END 2020-06-11 12:40 | disposition home or self-care (01) ==
LOC: M OPP 10:05
PROVIDERS: ATTEND Surgery
DX: Z12.11 Encounter for screening for malignant neoplasm of colon (principal); Z86.010 Personal history of colon polyps; Z80.0 Family history of malignant neoplasm of digestive organs; Z98.0 Intestinal bypass and anastomosis status; K57.30 Diverticulosis of large intestine without perforation or abscess without bleeding; E11.9 Type 2 diabetes mellitus without complications; G47.30 Sleep apnea, unspecified; Z79.84 Long term (current) use of oral hypoglycemic drugs; Z79.899 Other long term (current) drug therapy; Z88.8 Allergy status to other drugs, medicaments and biological substances; Z91.018 Allergy to other foods; Z87.891 Personal history of nicotine dependence

== ENCOUNTER → 2020-12-02 | Outpatient (CLI) | payer OTHER ==
[~2020-12-02] MED LIST changes: -LIDOCAINE 2% 100MG/5ML SDV (FOR ANES.) As Ordered ONE; -propofoL 200 MG/20 ML VIAL As Ordered ONE
--- NOTE | 2020-12-02 10:55 | REP ---
INDICATION: NICOTINE DEPENDENCE. COMPARISON: Comparison chest CT studies are dated November 26, 2018 and November 26, 2019.. TECHNIQUE: Low-dose noncontrast screening chest CT. 3 mm axial lung only windows images are provided. FINDINGS: Digital preliminary guest service representative radiograph is unremarkable. The lung yanez are free of infiltrate. No pulmonary mass or significant pulmonary nodule is appreciated. No pleural effusion is seen. There is some mild vascular calcification in the aorta and great vessel origins as before.9 IMPRESSION: Lung RADS category 1 findings. Repeat screening exam suggested in 1 year. <Electronically signed by Jann Bledsoe > 12/02/20 [id number]
== END ==
LOC: M RAD 10:02
PROVIDERS: ATTEND Internal Medicine Pulmonary Disease
DX: Z12.2 Encounter for screening for malignant neoplasm of respiratory organs (principal); F17.210 Nicotine dependence, cigarettes, uncomplicated

== ENCOUNTER 2021-12-13 16:35 | Inpatient (IN) | payer OTHER ==
[~2021-12-13] VITALS: Ht 152.4 cm; Wt 76.8 kg
[~2021-12-13 16:35] MED LIST changes: +ERGO500029 PO; -VITA250T50 PO; +VITA250T7 PO
[2021-12-13] MEDS ORDERED: ACETAMINOPHEN 325 MG TAB PO ONE (16:55)
[2021-12-13] MEDS ORDERED: methylPREDNISolone 125MG 2ML VIAL IV ONE (16:55)
[2021-12-13] MEDS ORDERED: COMBIVENT RESPIMAT 100-20MCG INHALER 4GM INH STA (16:57)
[2021-12-13 18:08] LABS: BASO % 0.4 % (0.0-1.0); HEMATOCRIT 35.2 % (36.0-47.0); HEMOGLOBIN 11.2 g/dl (12.0-15.5); LYMPH # 1.3 10^3/uL (1.5-5.0); LYMPH % 17.5 % (24.0-44.0); MEAN CORPUSCULAR HEMOGLOBIN 27.9 pg (27.0-33.0); MEAN CORPUSCULAR HGB CONC 31.8 g/dl (32.0-36.5); MEAN CORPUSCULAR VOLUME 87.6 fl (80.0-96.0); MONO # 0.6 10^3/uL (0.0-0.8); MONO % 7.5 % (2.0-8.0); NEUTROPHILS # 5.4 10^3/uL (1.5-8.5); NEUTROPHILS % 72.8 % (36.0-66.0); PLATELET COUNT, AUTOMATED 305 10^3/uL (150-450); RED BLOOD COUNT 4.02 10^6/uL (4.00-5.40); WHITE BLOOD COUNT 7.4 10^3/uL (4.0-10.0)
[2021-12-13 18:18] LABS: INR 1.05; PROTHROMBIN TIME 14.1 SECONDS (12.7-14.5)
[2021-12-13 18:19] LABS: PARTIAL THROMBOPLASTIN TIME 32.7 SECONDS (25.9-37.0)
[2021-12-13 18:22] LABS: D-DIMER QUANT 320.2 ng/ml (<500)
[2021-12-13 18:40] LABS: ALBUMIN 3.1 GM/DL (3.2-5.2); ALT/SGPT 38 U/L (12-78); BILIRUBIN,DIRECT 0.2 MG/DL (0.0-0.2); BILIRUBIN,TOTAL 0.3 MG/DL (0.2-1.0); BLOOD UREA NITROGEN 28 MG/DL (7-18); C REACTIVE PROTEIN QUANTITATIV 2.51 MG/DL (0.00-0.30); CALCIUM LEVEL 9.1 MG/DL (8.8-10.2); CARBON DIOXIDE LEVEL 22 MEQ/L (21-32); CHLORIDE LEVEL 108 MEQ/L (98-107); CREATININE FOR GFR 0.99 MG/DL (0.55-1.30); FERRITIN 59 NG/ML (8-252); GLOMERULAR FILTRATION RATE > 60.0 (>45); GLUCOSE, FASTING 121 MG/DL (70-100); LDH LACTATE DEHYDROGENASE 225 U/L (84-246); NT-PRO BNP 44 PG/ML (<125); POTASSIUM SERUM 4.4 MEQ/L (3.5-5.1); SODIUM LEVEL 138 MEQ/L (136-145); THYROID STIMULATING HORMONE 0.965 uIU/ML (0.358-3.740); TOTAL PROTEIN 7.6 GM/DL (6.4-8.2)
[2021-12-13 19:17] LABS: RSV AMPLIFICATION NEGATIVE (NEGATIVE)
[2021-12-13] MEDS ORDERED: LevoFLOXacin IV 750 MG in IV 1 EA IV ONE (19:55)
[2021-12-13] MEDS ORDERED: LOPI600T PO (20:14)
[2021-12-13] MEDS ORDERED: LISI20TA33 PO (20:14)
[2021-12-13] MEDS ORDERED: OMEG1CAP52 PO (20:14)
[2021-12-13] MEDS ORDERED: METF10004 PO (20:14)
[2021-12-13] MEDS ORDERED: OMEP40CA5 PO (20:14)
[2021-12-13] MEDS ORDERED: GABA-1171 PO (20:14)
[2021-12-13] MEDS ORDERED: ALBU8.5H INH (20:15)
[2021-12-13] MEDS ORDERED: HOME MED LIST COMPLETE! XX SCH (20:20)
[2021-12-13] MEDS ORDERED: ACETAMINOPHEN TAB 650MG DOSE (2X325MG) PO PRN (20:50)
[2021-12-13] MEDS ORDERED: ALBUTEROL SULFATE 2.5 MG/0.5 ML INH NEB SOLN NEB PRN (20:50)
[2021-12-13] MEDS ORDERED: PANTOPRAZOLE 40MG TAB (PROTONIX) PO ONE (21:10)
[2021-12-13] MEDS ORDERED: NS 1,000 ML IV SCH (21:20)
[2021-12-13] MEDS ORDERED: DEXTROSE 50% 50 ML SYRINGE IV PRN (22:00)
[2021-12-13] MEDS ORDERED: GLUCAGON INJ 1MG VIAL SC PRN (22:00)
[2021-12-13] MEDS ORDERED: GLUCOSE 4GM CHEW TABLET PO PRN (22:00)
[2021-12-13] MEDS: DOCUSATE SODIUM 100MG CAPSULE PO SCH (22:24)
[2021-12-13] MEDS: GABAPENTIN 100 MG CAP PO SCH (22:24)
[2021-12-14] MEDS: IPRATROPIUM 0.5MG/ALBUTEROL 2.5MG INH SOL UD 3ML (DUONEB) NEB SCH ×5 (01:51→20:00)
[2021-12-14] MEDS: methylPREDNISolone 40MG 1ML VIAL IV SCH ×4 (02:00→21:34)
[2021-12-14] MEDS: HEPARIN SOD (PORCINE) 5000UNITS/ML 1ML VIAL/SYRINGE SC SCH ×3 (06:00→22:27)
[2021-12-14 08:17] LABS: CALCIUM LEVEL 9.5 MG/DL (8.8-10.2); CREATININE FOR GFR 1.01 MG/DL (0.55-1.30); GLOMERULAR FILTRATION RATE 59.3 (>45)
[2021-12-14] MEDS: HumaLOG INSULIN (NovoLOG) PER UNIT SC SCH ×4 (08:54→22:28)
[2021-12-14] MEDS: metFORMIN (GLUCOPHAGE) 1000 MG TABLET PO SCH (08:55)
[2021-12-14] MEDS: GABAPENTIN 100 MG CAP PO SCH ×2 (08:55→21:34)
[2021-12-14] MEDS: ATORVASTATIN 20 MG TAB PO SCH (08:55)
[2021-12-14] MEDS: DOCUSATE SODIUM 100MG CAPSULE PO SCH ×2 (08:55→21:35)
[2021-12-14] MEDS: BARICITINIB 2MG TABLET (OLUMIANT) FOR EUA PO SCH (10:45)
[2021-12-14] MEDS ORDERED: REMDESIVIR 200 MG in NS 250 ML IV ONE (14:00)
[2021-12-14] MEDS ORDERED: SODIUM CHLORIDE 0.9% INJ 10 ML SYR IV ONE (14:00)
[2021-12-14 21:47] VITALS: BP 139/66
[2021-12-14] MEDS ORDERED: BENZONATATE 100MG CAPSULE PO PRN (22:15)
[2021-12-15] MEDS: IPRATROPIUM 0.5MG/ALBUTEROL 2.5MG INH SOL UD 3ML (DUONEB) NEB SCH ×4 (02:00→20:00)
[2021-12-15] MEDS: methylPREDNISolone 40MG 1ML VIAL IV SCH ×4 (02:15→21:20)
[2021-12-15] MEDS: HEPARIN SOD (PORCINE) 5000UNITS/ML 1ML VIAL/SYRINGE SC SCH ×3 (05:41→21:19)
[2021-12-15 06:00] VITALS: BP 134/62
[2021-12-15] MEDS: GABAPENTIN 100 MG CAP PO SCH ×2 (08:34→21:19)
[2021-12-15] MEDS: HumaLOG INSULIN (NovoLOG) PER UNIT SC SCH ×4 (08:34→21:20)
[2021-12-15] MEDS: metFORMIN (GLUCOPHAGE) 1000 MG TABLET PO SCH (08:35)
[2021-12-15] MEDS: BARICITINIB 2MG TABLET (OLUMIANT) FOR EUA PO SCH (08:35)
[2021-12-15] MEDS: DOCUSATE SODIUM 100MG CAPSULE PO SCH ×2 (08:35→21:00)
[2021-12-15] MEDS: ATORVASTATIN 20 MG TAB PO SCH (08:35)
[2021-12-15 08:37] VITALS: BP 125/56
[2021-12-15 14:00] VITALS: BP 130/59
[2021-12-15] MEDS: REMDESIVIR 100 MG in NS 250 ML IV SCH (14:04)
[2021-12-15] MEDS: SODIUM CHLORIDE 0.9% INJ 10 ML SYR IV SCH (14:04)
[2021-12-15 20:00] VITALS: BP 123/60
[2021-12-16] MEDS: IPRATROPIUM 0.5MG/ALBUTEROL 2.5MG INH SOL UD 3ML (DUONEB) NEB SCH ×4 (01:38→20:27)
[2021-12-16] MEDS: methylPREDNISolone 40MG 1ML VIAL IV SCH (02:23)
[2021-12-16 04:00] VITALS: BP 116/57
[2021-12-16] MEDS: HEPARIN SOD (PORCINE) 5000UNITS/ML 1ML VIAL/SYRINGE SC SCH ×3 (06:30→20:27)
[2021-12-16 07:27] LABS: HEMATOCRIT 32.9 % (36.0-47.0); HEMOGLOBIN 10.4 g/dl (12.0-15.5); MEAN CORPUSCULAR HGB CONC 31.6 g/dl (32.0-36.5); MEAN CORPUSCULAR VOLUME 88.4 fl (80.0-96.0); PLATELET COUNT, AUTOMATED 322 10^3/uL (150-450); RED BLOOD COUNT 3.72 10^6/uL (4.00-5.40); WHITE BLOOD COUNT 9.7 10^3/uL (4.0-10.0)
[2021-12-16] MEDS: LEVEMIR (INSULIN DETEMIR) 1 UNITS/0.01ML SC SCH (08:52)
[2021-12-16] MEDS: ATORVASTATIN 20 MG TAB PO SCH (08:53)
[2021-12-16] MEDS: HumaLOG INSULIN (NovoLOG) PER UNIT SC SCH ×4 (08:53→20:28)
[2021-12-16] MEDS: dexameTHASONE 20MG/5ML VIAL (J1100 PER 1MG) IV SCH ×2 (08:54→20:27)
[2021-12-16] MEDS: DOCUSATE SODIUM 100MG CAPSULE PO SCH ×2 (08:54→20:28)
[2021-12-16] MEDS: BARICITINIB 2MG TABLET (OLUMIANT) FOR EUA PO SCH (08:54)
[2021-12-16] MEDS: GABAPENTIN 100 MG CAP PO SCH ×2 (08:54→20:28)
[2021-12-16 09:15] LABS: BLOOD UREA NITROGEN 43 MG/DL (7-18); CALCIUM LEVEL 9.4 MG/DL (8.8-10.2); CARBON DIOXIDE LEVEL 21 MEQ/L (21-32); CHLORIDE LEVEL 109 MEQ/L (98-107); CREATININE FOR GFR 0.97 MG/DL (0.55-1.30); GLOMERULAR FILTRATION RATE > 60.0 (>45); GLUCOSE, FASTING 326 MG/DL (70-100); POTASSIUM SERUM 5.1 MEQ/L (3.5-5.1); SODIUM LEVEL 135 MEQ/L (136-145)
[2021-12-16 14:00] VITALS: BP 135/60
[2021-12-16] MEDS: REMDESIVIR 100 MG in NS 250 ML IV SCH (14:24)
[2021-12-16 15:33] LABS: MAGNESIUM LEVEL 2.1 MG/DL (1.7-2.2)
[2021-12-16] MEDS: SODIUM CHLORIDE 0.9% INJ 10 ML SYR IV SCH (16:25)
[2021-12-16 19:46] VITALS: BP 103/58
[2021-12-17] MEDS: IPRATROPIUM 0.5MG/ALBUTEROL 2.5MG INH SOL UD 3ML (DUONEB) NEB SCH ×4 (02:00→21:16)
[2021-12-17 04:37] VITALS: BP 118/61
[2021-12-17] MEDS: HEPARIN SOD (PORCINE) 5000UNITS/ML 1ML VIAL/SYRINGE SC SCH ×3 (05:21→21:03)
[2021-12-17 07:54] LABS: HEMATOCRIT 30.4 % (36.0-47.0); HEMOGLOBIN 9.7 g/dl (12.0-15.5); MEAN CORPUSCULAR HEMOGLOBIN 28.4 pg (27.0-33.0); MEAN CORPUSCULAR HGB CONC 31.9 g/dl (32.0-36.5); MEAN CORPUSCULAR VOLUME 88.9 fl (80.0-96.0); PLATELET COUNT, AUTOMATED 309 10^3/uL (150-450); RED BLOOD COUNT 3.42 10^6/uL (4.00-5.40); WHITE BLOOD COUNT 9.8 10^3/uL (4.0-10.0)
[2021-12-17 08:13] LABS: BLOOD UREA NITROGEN 47 MG/DL (7-18); CARBON DIOXIDE LEVEL 20 MEQ/L (21-32); CHLORIDE LEVEL 109 MEQ/L (98-107); CREATININE FOR GFR 0.96 MG/DL (0.55-1.30); GLOMERULAR FILTRATION RATE > 60.0 (>45); GLUCOSE, FASTING 279 MG/DL (70-100); POTASSIUM SERUM 4.9 MEQ/L (3.5-5.1); SODIUM LEVEL 134 MEQ/L (136-145)
[2021-12-17] MEDS: BARICITINIB 2MG TABLET (OLUMIANT) FOR EUA PO SCH (09:12)
[2021-12-17] MEDS: GABAPENTIN 100 MG CAP PO SCH ×2 (09:12→21:03)
[2021-12-17] MEDS: DOCUSATE SODIUM 100MG CAPSULE PO SCH ×2 (09:12→21:03)
[2021-12-17] MEDS: ATORVASTATIN 20 MG TAB PO SCH (09:13)
[2021-12-17] MEDS: dexameTHASONE 20MG/5ML VIAL (J1100 PER 1MG) IV SCH ×2 (09:13→21:02)
[2021-12-17] MEDS: HumaLOG INSULIN (NovoLOG) PER UNIT SC SCH ×4 (09:13→21:03)
[2021-12-17] MEDS: LEVEMIR (INSULIN DETEMIR) 1 UNITS/0.01ML SC SCH (09:14)
[2021-12-17] MEDS ORDERED: ISOVUE-370 76% 100ML VIAL As Ordered ONE (12:03)
[2021-12-17] MEDS: REMDESIVIR 100 MG in NS 250 ML IV SCH (13:18)
[2021-12-17 14:00] VITALS: BP 129/58
[2021-12-17 14:41] LABS: CK-MB VALUE MASS < 1.0 NG/ML (<3.6); CPK CREATINE PHOSPHOKINASE 23 U/L (26-192); MB/CK RELATIVE INDEX 4.35 (< OR =4)
[2021-12-17] MEDS: SODIUM CHLORIDE 0.9% INJ 10 ML SYR IV SCH (15:55)
[2021-12-17 20:00] VITALS: BP 107/54
[2021-12-17] MEDS ORDERED: LEVEMIR (INSULIN DETEMIR) 1 UNITS/0.01ML SC SCH ×2 (21:00)
[2021-12-17 22:16] LABS: MAGNESIUM LEVEL 2.1 MG/DL (1.7-2.2)
[2021-12-18] MEDS: IPRATROPIUM 0.5MG/ALBUTEROL 2.5MG INH SOL UD 3ML (DUONEB) NEB SCH ×2 (02:00→07:43)
[2021-12-18 05:00] VITALS: BP 110/53
[2021-12-18] MEDS: HEPARIN SOD (PORCINE) 5000UNITS/ML 1ML VIAL/SYRINGE SC SCH (05:39)
[2021-12-18] MEDS: HumaLOG INSULIN (NovoLOG) PER UNIT SC SCH ×2 (07:53→12:29)
[2021-12-18] MEDS: BARICITINIB 2MG TABLET (OLUMIANT) FOR EUA PO SCH (07:54)
[2021-12-18] MEDS: DOCUSATE SODIUM 100MG CAPSULE PO SCH (07:54)
[2021-12-18] MEDS: ATORVASTATIN 20 MG TAB PO SCH (07:54)
[2021-12-18] MEDS: GABAPENTIN 100 MG CAP PO SCH (07:54)
[2021-12-18] MEDS ORDERED: BACITAB PO (08:00)
[2021-12-18] MEDS ORDERED: PRED10TA2 PO (08:00)
[2021-12-18 08:37] LABS: HEMATOCRIT 34.4 % (36.0-47.0); HEMOGLOBIN 10.7 g/dl (12.0-15.5); MEAN CORPUSCULAR HEMOGLOBIN 27.4 pg (27.0-33.0); MEAN CORPUSCULAR HGB CONC 31.1 g/dl (32.0-36.5); PLATELET COUNT, AUTOMATED 343 10^3/uL (150-450); RED BLOOD COUNT 3.91 10^6/uL (4.00-5.40); WHITE BLOOD COUNT 12.8 10^3/uL (4.0-10.0)
[2021-12-18 09:08] LABS: BLOOD UREA NITROGEN 41 MG/DL (7-18); CARBON DIOXIDE LEVEL 21 MEQ/L (21-32); CHLORIDE LEVEL 106 MEQ/L (98-107); CREATININE FOR GFR 0.96 MG/DL (0.55-1.30); GLOMERULAR FILTRATION RATE > 60.0 (>45); GLUCOSE, FASTING 178 MG/DL (70-100); POTASSIUM SERUM 4.9 MEQ/L (3.5-5.1); SODIUM LEVEL 135 MEQ/L (136-145)
[2021-12-18] MEDS: dexameTHASONE 20MG/5ML VIAL (J1100 PER 1MG) IV SCH (09:15)
[2021-12-18 12:32] VITALS: BP 124/59
[2021-12-18 19:07] LABS: MAGNESIUM LEVEL 2.2 MG/DL (1.7-2.2)
== END 2021-12-18 14:30 | disposition home or self-care (01) | DRG 137 ==
LOC: M ED 16:35 → M ED INP 20:46 → M 4MAIN 12-14 21:47
PROVIDERS: ADMIT Internal Medicine; ATTEND General Practice
DX: U07.1 COVID-19 (principal); J96.01 Acute respiratory failure with hypoxia; J12.82 Pneumonia due to coronavirus disease 2019; E11.40 Type 2 diabetes mellitus with diabetic neuropathy, unspecified; E11.65 Type 2 diabetes mellitus with hyperglycemia; E78.5 Hyperlipidemia, unspecified; J44.1 Chronic obstructive pulmonary disease with (acute) exacerbation; Z79.899 Other long term (current) drug therapy; G47.33 Obstructive sleep apnea (adult) (pediatric); Z87.891 Personal history of nicotine dependence; Z88.8 Allergy status to other drugs, medicaments and biological substances; Z91.018 Allergy to other foods; I10 Essential (primary) hypertension; E66.9 Obesity, unspecified; Z68.33 Body mass index [BMI] 33.0-33.9, adult

== ENCOUNTER → 2022-01-21 | Outpatient (CLI) | payer OTHER ==
[~2022-01-21] MED LIST changes: +ALBU8.5H INH; +BACITAB PO; +GABA-1171 PO; +LISI20TA33 PO; +LOPI600T PO; +METF10004 PO; +OMEG1CAP52 PO; +OMEP40CA5 PO
== END ==
LOC: M RAD 10:23
PROVIDERS: ATTEND Internal Medicine Pulmonary Disease
DX: Z86.16 Personal history of COVID-19 (principal)

== ENCOUNTER → 2022-03-22 | Outpatient (CLI) | payer OTHER | LOC: M WHC 10:29 | PROVIDERS: ATTEND Internal Medicine Nephrology | DX: N18.31 Chronic kidney disease, stage 3a (principal); N28.1 Cyst of kidney, acquired ==

== ENCOUNTER → 2022-07-11 | Outpatient (REF) | payer OTHER ==
[2022-07-11 18:36] LABS: CREATININE,RANDOM URINE 33.3 MG/DL; TOTAL PROTEIN,RANDOM URINE 68.3 MG/DL (0.0-12.0)
[2022-07-12 11:26] LABS: TOTAL PROTEIN 7.5 GM/DL (6.4-8.2)
[2022-07-13 11:19] LABS: ALBUMIN 4.32 GM/DL (3.29-5.55); ALBUMIN % 57.6 % (55.8-66.1); ALPHA-1-GLOBULIN % 4.8 % (2.9-4.9); ALPHA-1-GLOBULINS 0.36 GM/DL (0.17-0.41); ALPHA-2-GLOBULINS 0.93 GM/DL (0.42-0.99); ALPHA-2-GLOBULINS % 12.4 % (7.1-11.8); BETA-1-GLOBULINS 0.69 GM/DL (0.28-0.60); BETA-1-GLOBULINS % 9.2 % (4.7-7.2); BETA-2-GLOBULINS 0.48 GM/DL (0.19-0.55); BETA-2-GLOBULINS % 6.4 % (3.2-6.5); GAMMA GLOBULIN % 9.6 % (11.1-18.8); GAMMA GLOBULINS 0.72 GM/DL (0.65-1.58)
== END ==
LOC: M LAB REF 17:08
PROVIDERS: ATTEND Internal Medicine Nephrology
DX: N18.31 Chronic kidney disease, stage 3a (principal)

== ENCOUNTER → 2022-12-28 | Outpatient (CLI) | payer OTHER | LOC: M RAD 10:35 | PROVIDERS: ATTEND Internal Medicine Pulmonary Disease | DX: Z12.2 Encounter for screening for malignant neoplasm of respiratory organs (principal); Z87.891 Personal history of nicotine dependence ==

== ENCOUNTER → 2023-01-10 | Outpatient (REF) | payer OTHER ==
[2023-01-11 17:58] LABS: PERCENT SATURATION 5.5 % (13.2-45.0)
[2023-01-11 18:00] LABS: FERRITIN 2.5 NG/ML (7.3-270.7)
== END ==
LOC: M LAB REF 16:59
PROVIDERS: ATTEND Internal Medicine Nephrology
DX: D50.9 Iron deficiency anemia, unspecified (principal)

== ENCOUNTER 2023-01-19 12:42 | Outpatient (CLI) | payer OTHER ==
[~2023-01-19] VITALS: Ht 154.9 cm; Wt 77.1 kg
[~2023-01-19 12:42] MED LIST changes: +ALBUTEROL SULFATE 2.5MG/0.5ML INH NEB SOLN INH PRN; +EPINEPHrine INJ 1 MG/ML 1ML AMP IM PRN; +FERRIC CARBOXYMALTOSE INJ 750 MG in NS 250 ML (>50kg) IV ONE; +NS 1,000 ML IV SCH; +diphenhydrAMINE 50MG/ML VIAL IV PRN; +methylPREDNISolone 125MG 2ML VIAL IV PRN
[2023-01-19 13:08] VITALS: BP 152/72
[2023-01-19 14:05] VITALS: BP 150/67
== END 2023-01-19 14:10 | disposition home or self-care (01) ==
LOC: M INFU 12:42
PROVIDERS: ATTEND Internal Medicine Nephrology
DX: E61.1 Iron deficiency (principal); Z88.0 Allergy status to penicillin
CPT/HCPCS: 96365; J1439

== ENCOUNTER 2023-01-26 09:45 | Outpatient (CLI) | payer OTHER ==
[~2023-01-26] VITALS: Ht 154.9 cm; Wt 77.1 kg
[2023-01-26 09:45] VITALS: BP 155/71
[~2023-01-26 09:45] MED LIST changes: -FERRIC CARBOXYMALTOSE INJ 750 MG in NS 250 ML (>50kg) IV ONE; -NS 1,000 ML IV SCH
[2023-01-26] MEDS ORDERED: NS 1,000 ML IV SCH (10:00)
[2023-01-26] MEDS ORDERED: FERRIC CARBOXYMALTOSE INJ 750 MG in NS 250 ML (>50kg) IV ONE ×3 (10:00)
[2023-01-26 10:47] VITALS: BP 126/60
[2023-01-26 11:10] VITALS: BP 137/64
== END 2023-01-26 11:05 | disposition home or self-care (01) ==
LOC: M INFU 09:45
PROVIDERS: ATTEND Internal Medicine Nephrology
DX: E61.1 Iron deficiency (principal); Z88.1 Allergy status to other antibiotic agents; Z91.018 Allergy to other foods
CPT/HCPCS: 96365; J1439

== ENCOUNTER → 2023-06-09 | Outpatient (CLI) | payer OTHER ==
[~2023-06-09] MED LIST changes: -ALBUTEROL SULFATE 2.5MG/0.5ML INH NEB SOLN INH PRN; -EPINEPHrine INJ 1 MG/ML 1ML AMP IM PRN; -diphenhydrAMINE 50MG/ML VIAL IV PRN; -methylPREDNISolone 125MG 2ML VIAL IV PRN
== END ==
LOC: M RAD 12:32
PROVIDERS: ATTEND Otolaryngology
DX: R22.1 Localized swelling, mass and lump, neck (principal); Z53.9 Procedure and treatment not carried out, unspecified reason

== ENCOUNTER 2023-06-23 11:19 | Observation (INO) | payer OTHER ==
[~2023-06-23] VITALS: Ht 152.4 cm; Wt 72.2 kg
[2023-06-23] MEDS ORDERED: HYDR-3910 PO (11:35)
[2023-06-23] MEDS ORDERED: LISI40TA4 PO (11:35)
[2023-06-23] MEDS ORDERED: MAGN400T2 PO (11:35)
[2023-06-23 15:22] LABS: BASO # 0.1 10^3/uL (0.0-0.2); BASO % 0.8 % (0.0-1.0); EOS # 0.3 10^3/uL (0.0-0.5); EOS % 3.3 % (0.0-3.0); HEMATOCRIT 25.4 % (36.0-47.0); HEMOGLOBIN 7.3 g/dl (12.0-15.5); LYMPH # 1.5 10^3/uL (1.5-5.0); LYMPH % 19.3 % (24.0-44.0); MEAN CORPUSCULAR HEMOGLOBIN 24.7 pg (27.0-33.0); MEAN CORPUSCULAR HGB CONC 28.7 g/dl (32.0-36.5); MEAN CORPUSCULAR VOLUME 86.1 fl (80.0-96.0); MONO # 0.6 10^3/uL (0.0-0.8); MONO % 7.3 % (2.0-8.0); NEUTROPHILS # 5.3 10^3/uL (1.5-8.5); NEUTROPHILS % 68.3 % (36.0-66.0); PLATELET COUNT, AUTOMATED 277 10^3/uL (150-450); RED BLOOD COUNT 2.95 10^6/uL (4.00-5.40); WHITE BLOOD COUNT 7.7 10^3/uL (4.0-10.0)
[2023-06-23 15:38] LABS: INR 1.17; PROTHROMBIN TIME 14.6 SECONDS (12.5-14.5)
[2023-06-23 15:39] LABS: PARTIAL THROMBOPLASTIN TIME 42.5 SECONDS (24.8-34.2)
[2023-06-23 15:52] LABS: LIPASE 67 U/L (12-53)
[2023-06-23 15:54] LABS: ALBUMIN 4.2 G/DL (3.2-5.2); ALKALINE PHOSPHATASE 153 U/L (46-116); ALT/SGPT 28 U/L (7.0-40); AST/SGOT 55 U/L (<34); BILIRUBIN,DIRECT 0.1 MG/DL (<0.4); BILIRUBIN,TOTAL 0.3 MG/DL (0.3-1.2); BLOOD UREA NITROGEN 17 MG/DL (9-23); CALCIUM LEVEL 9.6 MG/DL (8.3-10.6); CARBON DIOXIDE LEVEL 19 MMOL/L (20-31); CHLORIDE LEVEL 111 MMOL/L (98-107); CREATININE FOR GFR 0.75 MG/DL (0.55-1.30); GLOMERULAR FILTRATION RATE > 60.0 (>45); GLUCOSE, FASTING 115 MG/DL (74-106); IRON (FE) 29 UG/DL (50-170); POTASSIUM SERUM 4.9 MMOL/L (3.5-5.1); SODIUM LEVEL 141 MMOL/L (136-145); TOTAL PROTEIN 7.7 G/DL (5.7-8.2)
[2023-06-23] MEDS ORDERED: ISOVUE-370 76% 100ML VIAL As Ordered ONE (16:34)
[2023-06-23 18:12] LABS: FREE T4 0.91 NG/DL (0.89-1.76); THYROID STIMULATING HORMONE 1.793 uIU/ML (0.55-4.78)
[2023-06-23 20:26] LABS: HEMATOCRIT 27.3 % (36.0-47.0); HEMOGLOBIN 7.9 g/dl (12.0-15.5)
[2023-06-23] MEDS ORDERED: GLUCAGON INJ 1MG VIAL SC PRN (20:50)
[2023-06-23] MEDS ORDERED: GLUCOSE 4GM CHEW TABLET PO PRN (20:50)
[2023-06-23] MEDS ORDERED: DEXTROSE 50% 50ML SYRINGE IV PRN (20:50)
[2023-06-23] MEDS: **hydrALAZINE HCL** 25 MG TAB PO SCH (21:00)
[2023-06-23] MEDS ORDERED: INSULIN LISPRO (NovoLOG) PER UNIT SC SCH (21:00)
[2023-06-23] MEDS: PANTOPRAZOLE 40MG VIAL IV SCH (21:33)
[2023-06-23] MEDS ORDERED: D-3-50003 PO (21:47)
[2023-06-23] MEDS ORDERED: BENA25CA4 PO (21:49)
[2023-06-23] MEDS ORDERED: HOME MED LIST COMPLETE! XX SCH (21:50)
[2023-06-23] MEDS ORDERED: ALBUTEROL 90 MCG/ACT 8GM HFA INHALER INH PRN (22:00)
[2023-06-23] MEDS ORDERED: diphenhydrAMINE 50MG CAP PO PRN (22:00)
[2023-06-23 22:02] VITALS: BP 165/72; TEMP 99.3; O2SAT 97
[2023-06-23 22:17] VITALS: BP 142/67; TEMP 98.5; O2SAT 97
[2023-06-23 22:22] LABS: PERCENT SATURATION 5.3 % (13.2-45.0); TOTAL IRON BINDING CAPACITY 544 UG/DL (250-425)
[2023-06-23 22:26] LABS: FERRITIN 6.2 NG/ML (7.3-270.7)
[2023-06-23 23:19] VITALS: BP 139/63; TEMP 98.6; O2SAT 97
[2023-06-24 01:00] LABS: HEMOGLOBIN 8.8 g/dl (12.0-15.5)
[2023-06-24 05:58] LABS: HEMOGLOBIN 8.7 g/dl (12.0-15.5)
[2023-06-24 07:41] LABS: BASO # 0.1 10^3/uL (0.0-0.2); BASO % 0.8 % (0.0-1.0); EOS # 0.2 10^3/uL (0.0-0.5); EOS % 3.2 % (0.0-3.0); HEMATOCRIT 29.1 % (36.0-47.0); HEMOGLOBIN 8.7 g/dl (12.0-15.5); LYMPH # 1.6 10^3/uL (1.5-5.0); LYMPH % 22.5 % (24.0-44.0); MEAN CORPUSCULAR HEMOGLOBIN 25.7 pg (27.0-33.0); MEAN CORPUSCULAR HGB CONC 29.9 g/dl (32.0-36.5); MEAN CORPUSCULAR VOLUME 86.1 fl (80.0-96.0); MONO # 0.6 10^3/uL (0.0-0.8); MONO % 8.6 % (2.0-8.0); NEUTROPHILS # 4.5 10^3/uL (1.5-8.5); NEUTROPHILS % 64.2 % (36.0-66.0); PLATELET COUNT, AUTOMATED 274 10^3/uL (150-450); RED BLOOD COUNT 3.38 10^6/uL (4.00-5.40); WHITE BLOOD COUNT 7.1 10^3/uL (4.0-10.0)
[2023-06-24 07:45] LABS: BLOOD UREA NITROGEN 13 MG/DL (9-23); CALCIUM LEVEL 8.9 MG/DL (8.3-10.6); CARBON DIOXIDE LEVEL 20 MMOL/L (20-31); CHLORIDE LEVEL 111 MMOL/L (98-107); CREATININE FOR GFR 0.72 MG/DL (0.55-1.30); GLOMERULAR FILTRATION RATE > 60.0 (>45); GLUCOSE, FASTING 125 MG/DL (74-106); POTASSIUM SERUM 4.5 MMOL/L (3.5-5.1); SODIUM LEVEL 141 MMOL/L (136-145)
[2023-06-24] MEDS: **hydrALAZINE HCL** 25 MG TAB PO SCH (08:08)
[2023-06-24] MEDS: INSULIN LISPRO (NovoLOG) PER UNIT SC SCH ×2 (08:09→12:00)
[2023-06-24] MEDS: PANTOPRAZOLE 40MG VIAL IV SCH (08:09)
[2023-06-24] MEDS ORDERED: ACETAMINOPHEN 500 MG TAB PO PRN (08:55)
[2023-06-24] MEDS ORDERED: lisinopriL 40MG TAB PO SCH (09:00)
[2023-06-24] MEDS ORDERED: IRON SUCROSE 100MG 5ML VIAL IV ONE (09:00)
[2023-06-24] MEDS ORDERED: IRON SUCROSE 200 MG in NS 100 ML OVER 1 HR IV ONE (09:00)
[2023-06-24] MEDS ORDERED: GABAPENTIN 100 MG CAP PO SCH (09:00)
[2023-06-24] MEDS ORDERED: ATORVASTATIN 20 MG TAB PO SCH (09:00)
[2023-06-24 10:00] VITALS: BP 130/72; TEMP 97.7; O2SAT 95
[2023-06-24] MEDS ORDERED: FERRIC CARBOXYMALTOSE INJ 750 MG, VIAL MATE ADAPTER 1 EACH in NS 250 ML IV ONE (10:00)
[2023-06-24 14:00] VITALS: BP 176/79; TEMP 99; O2SAT 96
== END 2023-06-24 15:05 | disposition home or self-care (01) ==
LOC: M ED 11:19 → M ED INP 20:48 → M MS5PR 06-24 09:50
PROVIDERS: ADMIT Internal Medicine; ATTEND Internal Medicine
DX: D50.9 Iron deficiency anemia, unspecified (principal); R10.11 Right upper quadrant pain; E11.9 Type 2 diabetes mellitus without complications; U09.9 Post COVID-19 condition, unspecified; J45.909 Unspecified asthma, uncomplicated; I10 Essential (primary) hypertension; Z79.84 Long term (current) use of oral hypoglycemic drugs; Z88.1 Allergy status to other antibiotic agents; Z91.018 Allergy to other foods
CPT/HCPCS: 36415; 36430; 70491; 71046; 74177; 80048; 80076; 82728; 83550; 83690; 84439; 84443; 85014; 85018; 85025; 85610; 85730; 86850; 86900; 86901; 86920; 87486; 87581; 87633; 87798; 93005; 96374; 96375; 96376; 99285; C9113; J1439; J1815; P9016; Q9967

== ENCOUNTER → 2023-07-25 | Outpatient (CLI) | payer OTHER ==
[~2023-07-25] MED LIST changes: +BENA25CA4 PO; +D-3-50003 PO; +DIPH-329 PO; +HYDR-3910 PO; +IRON65TA2 PO; +LISI40TA4 PO; +MAGN400T2 PO
== END ==
LOC: M RAD 09:31
PROVIDERS: ATTEND Otolaryngology
DX: E04.2 Nontoxic multinodular goiter (principal)

== ENCOUNTER → 2023-08-02 | Outpatient (CLI) | payer OTHER | LOC: M RAD 10:41 | PROVIDERS: ATTEND Internal Medicine Pulmonary Disease | DX: Z87.891 Personal history of nicotine dependence (principal) ==

== ENCOUNTER → 2023-09-14 | Outpatient (CLI) | payer OTHER ==
[~2023-09-14] MED LIST changes: +LIDOCAINE 1% MDV 20ML VIAL As Ordered ONE
[2023-09-14 09:10] VITALS: BP 198/98; TEMP 97.8; O2SAT 98
== END ==
LOC: M IRPRO 08:55
PROVIDERS: ATTEND Otolaryngology
DX: E04.1 Nontoxic single thyroid nodule (principal)

== ENCOUNTER 2023-09-22 15:40 | Outpatient (CLI) | payer OTHER ==
[~2023-09-22] VITALS: Ht 152.4 cm; Wt 71.8 kg
[~2023-09-22 15:40] MED LIST changes: +ALBUTEROL SULFATE 2.5MG/0.5ML INH NEB SOLN INH PRN; +EPINEPHrine INJ 1 MG/ML 1ML AMP IM PRN; -LIDOCAINE 1% MDV 20ML VIAL As Ordered ONE; +diphenhydrAMINE 50MG/ML VIAL IV PRN; +methylPREDNISolone 125MG 2ML VIAL IV PRN
[2023-09-22 16:00] VITALS: BP 177/78; O2SAT 94
[2023-09-22] MEDS ORDERED: NS 1,000 ML IV SCH (16:00)
[2023-09-22] MEDS ORDERED: diphenhydrAMINE 25MG CAP PO ONE (16:00)
[2023-09-22] MEDS ORDERED: ACETAMINOPHEN TAB 650MG DOSE (2X325MG) PO ONE (16:00)
[2023-09-22] MEDS ORDERED: IRON SUCROSE 300 MG in NS 250 ML OVER 90 MIN. IV ONE (16:30)
[2023-09-22 17:55] VITALS: BP 147/67; O2SAT 95
== END 2023-09-22 18:10 ==
LOC: M INFU 15:40
PROVIDERS: ATTEND Internal Medicine Medical Oncology
DX: D50.9 Iron deficiency anemia, unspecified (principal); Z88.1 Allergy status to other antibiotic agents; Z91.018 Allergy to other foods
CPT/HCPCS: 96365; 96366; J1756

== ENCOUNTER 2023-09-28 06:12 | Day surgery (SDC) | payer OTHER ==
[~2023-09-28] VITALS: Ht 152.4 cm; Wt 71.3 kg
[~2023-09-28 06:12] MED LIST changes: -ALBUTEROL SULFATE 2.5MG/0.5ML INH NEB SOLN INH PRN; -EPINEPHrine INJ 1 MG/ML 1ML AMP IM PRN; -diphenhydrAMINE 50MG/ML VIAL IV PRN; -methylPREDNISolone 125MG 2ML VIAL IV PRN
[2023-09-28] MEDS ORDERED: propofoL 200 MG/20 ML VIAL As Ordered ONE ×2 (07:05→07:46)
[2023-09-28] MEDS ORDERED: LIDOCAINE 2% 100MG/5ML SDV (FOR ANES.) As Ordered ONE (07:05)
[2023-09-28] MEDS ORDERED: fentaNYL 100 MCG/2 ML INJECTION As Ordered ONE (07:05)
[2023-09-28] MEDS: NS 1,000 ML IV ONE (07:09)
[2023-09-28 09:12] VITALS: BP 142/63; TEMP 97; O2SAT 98
== END 2023-09-28 09:15 | disposition home or self-care (01) ==
LOC: M OPP 06:12
PROVIDERS: ATTEND Internal Medicine Gastroenterology
DX: D50.9 Iron deficiency anemia, unspecified (principal); K55.21 Angiodysplasia of colon with hemorrhage; K64.8 Other hemorrhoids; K22.89 Other specified disease of esophagus; K64.4 Residual hemorrhoidal skin tags; K29.70 Gastritis, unspecified, without bleeding; E11.9 Type 2 diabetes mellitus without complications; I10 Essential (primary) hypertension; E78.00 Pure hypercholesterolemia, unspecified; J44.9 Chronic obstructive pulmonary disease, unspecified; Z79.899 Other long term (current) drug therapy; Z87.891 Personal history of nicotine dependence; Z90.710 Acquired absence of both cervix and uterus
CPT/HCPCS: 43239; 45382; 88304; 88305; J3010

== ENCOUNTER → 2023-11-03 | Outpatient (CLI) | payer OTHER ==
[~2023-11-03] MED LIST changes: +ASPI1POW PO; -DIPH-329 PO; +DIPH-448 PO; +ERGO500029; +FLUTISP; +TIRZ2.5P
== END ==
LOC: M RAD 09:09
PROVIDERS: ATTEND Nurse Practitioner Family
DX: R19.00 Intra-abdominal and pelvic swelling, mass and lump, unspecified site (principal); R16.0 Hepatomegaly, not elsewhere classified

== ENCOUNTER 2023-11-16 07:47 | Observation (INO) | payer OTHER ==
[~2023-11-16] VITALS: Ht 152.4 cm; Wt 70.6 kg
[~2023-11-16 07:47] MED LIST changes: -ERGO500029; -FLUTISP; +FLUTISP NARES; -TIRZ2.5P; +TIRZ2.5P SC
[2023-11-16] MEDS: LR 1,000 ML IV SCH ×2 (08:53→14:11)
[2023-11-16] MEDS ORDERED: LIDOCAINE W/EPINEPHRINE 1% 20ML VIAL As Ordered ONE (10:23)
[2023-11-16] MEDS ORDERED: BACITRACIN OINTMENT 30GM TUBE As Ordered ONE (10:23)
[2023-11-16] MEDS ORDERED: LIDOCAINE 2% 100MG/5ML SDV (FOR ANES.) As Ordered ONE (11:17)
[2023-11-16] MEDS ORDERED: SUGAMMADEX SODIUM 500 MG/5 ML VIAL (BRIDION) As Ordered ONE (11:17)
[2023-11-16] MEDS ORDERED: propofoL 200 MG/20 ML VIAL As Ordered ONE (11:17)
[2023-11-16] MEDS ORDERED: PHENYLEPHRINE 10MG/ML 1ML VIAL As Ordered ONE (11:17)
[2023-11-16] MEDS ORDERED: ROCURONIUM BROMIDE 50MG/5ML VIAL As Ordered ONE (11:17)
[2023-11-16] MEDS ORDERED: MIDAZOLAM INJ 2MG/2ML VIAL As Ordered ONE (11:17)
[2023-11-16] MEDS ORDERED: REMIFENTANIL 1MG 3ML VIAL As Ordered ONE (11:17)
[2023-11-16] MEDS ORDERED: fentaNYL 250 MCG/5 ML INJECTION As Ordered ONE (11:17)
[2023-11-16] MEDS ORDERED: PHENYLephrine 500MCG 5ML (100MCG/ML) SYRINGE As Ordered ONE (11:21)
[2023-11-16] MEDS ORDERED: LACRILUBE (AKWA TEARS) OPHTH OINT 3.5GM As Ordered ONE (11:21)
[2023-11-16] MEDS ORDERED: ePHEDrine SULFATE 25 MG/5 ML(5MG/ML) SYRINGE As Ordered ONE (11:34)
[2023-11-16] MEDS ORDERED: GLYCOPYRROLATE INJ 0.2 MG/ML 2 ML VIAL As Ordered ONE (11:35)
[2023-11-16] MEDS ORDERED: EPINEPHrine 1MG/ML INJ 30ML MD-VIAL As Ordered ONE (12:26)
[2023-11-16] MEDS ORDERED: ACETAMINOPHEN 1000MG 100ML IV BAG As Ordered ONE (14:07)
[2023-11-16] MEDS ORDERED: HYDROMORPHONE HCL 0.5 MG/ 0.5 ML SYRINGE IV PRN (14:30)
[2023-11-16] MEDS ORDERED: LR 1,000 ML IV SCH (14:30)
[2023-11-16] MEDS ORDERED: ONDANSETRON 4MG 2ML VIAL IV PRN (14:30)
[2023-11-16] MEDS ORDERED: oxyCODONE 5MG TAB PO PRN (14:30)
[2023-11-16] MEDS ORDERED: fentaNYL 100 MCG/2 ML INJECTION IV PRN (14:30)
[2023-11-16] MEDS ORDERED: GLUCOSE 4GM CHEW TABLET PO PRN ×2 (15:15→18:45)
[2023-11-16] MEDS ORDERED: DEXTROSE 50% 50ML SYRINGE IV PRN ×2 (15:15→18:45)
[2023-11-16] MEDS ORDERED: INSULIN LISPRO (NovoLOG) PER UNIT SC PRN (15:15)
[2023-11-16] MEDS ORDERED: GLUCAGON INJ 1MG VIAL SC PRN ×2 (15:15→18:45)
[2023-11-16] MEDS ORDERED: ARTIFICIAL TEARS DROPS 15ML BTL (VISINE DRY RELIEF) OD PRN (16:30)
[2023-11-16 17:27] LABS: HEMATOCRIT 31.8 % (36.0-47.0); HEMOGLOBIN 10.2 g/dl (12.0-15.5); MEAN CORPUSCULAR HEMOGLOBIN 29.8 pg (27.0-33.0); MEAN CORPUSCULAR HGB CONC 32.1 g/dl (32.0-36.5); PLATELET COUNT, AUTOMATED 219 10^3/uL (150-450); RED BLOOD COUNT 3.42 10^6/uL (4.00-5.40); WHITE BLOOD COUNT 9.2 10^3/uL (4.0-10.0)
[2023-11-16 17:51] LABS: BLOOD UREA NITROGEN 21 MG/DL (9-23); CALCIUM LEVEL 9.6 MG/DL (8.3-10.6); CARBON DIOXIDE LEVEL 25 MMOL/L (20-31); CHLORIDE LEVEL 108 MMOL/L (98-107); CREATININE FOR GFR 0.83 MG/DL (0.55-1.30); GLOMERULAR FILTRATION RATE > 60.0 (>45); GLUCOSE, FASTING 217 MG/DL (74-106); POTASSIUM SERUM 4.5 MMOL/L (3.5-5.1); SODIUM LEVEL 141 MMOL/L (136-145)
[2023-11-16] MEDS ORDERED: MOM 30ML SUSPENSION UDC PO PRN (18:00)
[2023-11-16] MEDS ORDERED: MAALOX 30 ML SUSP *UDC PO PRN (18:00)
[2023-11-16 18:15] VITALS: BP 134/63; TEMP 96.5; O2SAT 92
[2023-11-16] MEDS: ACETAMINOPHEN TAB 650MG DOSE (2X325MG) PO PRN (18:19)
[2023-11-16] MEDS ORDERED: diphenhydrAMINE 25MG CAP PO PRN (18:45)
[2023-11-16 19:42] VITALS: BP 146/65; TEMP 98; O2SAT 92
[2023-11-16 20:00] VITALS: O2SAT 92
[2023-11-16] MEDS ORDERED: PERCOCET 5MG/325MG TAB PO ONE (21:00)
[2023-11-16] MEDS ORDERED: **hydrALAZINE HCL** 25 MG TAB PO SCH (21:00)
[2023-11-16] MEDS ORDERED: INSULIN LISPRO (NovoLOG) PER UNIT SC SCH (21:00)
[2023-11-16] MEDS: GABAPENTIN 100 MG CAP PO SCH (21:08)
[2023-11-16 22:00] VITALS: O2SAT 97
[2023-11-16 23:00] VITALS: O2SAT 97
[2023-11-16 23:38] VITALS: BP 110/57; TEMP 97.3; O2SAT 95
[2023-11-17] VITALS (18 sets, daily range): BP systolic 117–135; BP diastolic 58–81; TEMP 97.5–98.4; O2SAT 90–98
[2023-11-17] MEDS: ACETAMINOPHEN TAB 650MG DOSE (2X325MG) PO PRN (04:08)
[2023-11-17 05:37] LABS: HEMATOCRIT 29.8 % (36.0-47.0); HEMOGLOBIN 9.4 g/dl (12.0-15.5); MEAN CORPUSCULAR HEMOGLOBIN 29.9 pg (27.0-33.0); MEAN CORPUSCULAR HGB CONC 31.5 g/dl (32.0-36.5); MEAN CORPUSCULAR VOLUME 94.9 fl (80.0-96.0); PLATELET COUNT, AUTOMATED 217 10^3/uL (150-450); RED BLOOD COUNT 3.14 10^6/uL (4.00-5.40); WHITE BLOOD COUNT 8.5 10^3/uL (4.0-10.0)
[2023-11-17] MEDS: KETOROLAC TROMETHAMINE 10 MG TAB PO PRN ×2 (05:59→14:14)
[2023-11-17 06:01] LABS: BLOOD UREA NITROGEN 26 MG/DL (9-23); CALCIUM LEVEL 8.9 MG/DL (8.3-10.6); CARBON DIOXIDE LEVEL 26 MMOL/L (20-31); CHLORIDE LEVEL 109 MMOL/L (98-107); GLOMERULAR FILTRATION RATE > 60.0 (>45); GLUCOSE, FASTING 135 MG/DL (74-106); POTASSIUM SERUM 4.3 MMOL/L (3.5-5.1); SODIUM LEVEL 143 MMOL/L (136-145)
[2023-11-17] MEDS: GABAPENTIN 100 MG CAP PO SCH (08:51)
[2023-11-17] MEDS: INSULIN LISPRO (NovoLOG) PER UNIT SC SCH ×2 (08:51→12:49)
[2023-11-17] MEDS ORDERED: lisinopriL 40MG TAB PO SCH (09:00)
[2023-11-17] MEDS ORDERED: MAGNESIUM OXIDE 400MG TAB (MAG-OX) PO SCH (09:00)
[2023-11-17] MEDS ORDERED: PANTOPRAZOLE 40MG TAB (PROTONIX) PO SCH (09:00)
[2023-11-17] MEDS ORDERED: ATORVASTATIN 20 MG TAB PO SCH (09:00)
[2023-11-17] MEDS ORDERED: MED REC IN PROGRESS XX SCH (10:10)
[2023-11-17] MEDS ORDERED: LORA-1041 PO (10:56)
[2023-11-17] MEDS ORDERED: HOME MED LIST COMPLETE! XX SCH (11:00)
[2023-11-17] MEDS ORDERED: OXYC1TAB23 PO (12:35)
== END 2023-11-17 15:08 | disposition home or self-care (01) ==
LOC: M SDC 07:47 → M RR INP 07:48 → M PCU 18:03
PROVIDERS: ADMIT Student in an Organized Health Care Education/Training Program; ATTEND Otolaryngology
DX: D11.0 Benign neoplasm of parotid gland (principal); R59.0 Localized enlarged lymph nodes; Z79.899 Other long term (current) drug therapy; E11.9 Type 2 diabetes mellitus without complications; I10 Essential (primary) hypertension; E78.5 Hyperlipidemia, unspecified; K57.92 Diverticulitis of intestine, part unspecified, without perforation or abscess without bleeding; K21.9 Gastro-esophageal reflux disease without esophagitis; D64.9 Anemia, unspecified; Z87.891 Personal history of nicotine dependence; Z79.51 Long term (current) use of inhaled steroids; Z85.43 Personal history of malignant neoplasm of ovary; J44.9 Chronic obstructive pulmonary disease, unspecified; G47.33 Obstructive sleep apnea (adult) (pediatric); Z88.1 Allergy status to other antibiotic agents; Z91.018 Allergy to other foods
CPT/HCPCS: 36415; 38510; 42415; 80048; 85027; 88305; J0131; J0171; J1815; J2250; J2371; J3010

== ENCOUNTER 2024-03-08 13:18 | Outpatient (CLI) | payer OTHER ==
[~2024-03-08] VITALS: Ht 152.4 cm; Wt 70.0 kg
[2024-03-08 13:25] VITALS: BP 151/67; O2SAT 97
[2024-03-08] MEDS ORDERED: diphenhydrAMINE 25MG CAP PO ONE (13:30)
[2024-03-08] MEDS: ACETAMINOPHEN TAB 650MG DOSE (2X325MG) PO ONE (13:31)
[2024-03-08] MEDS: IRON SUCROSE 100 MG in NS 95 ML IV ONE (13:53)
[2024-03-08 14:54] VITALS: BP 149/70; O2SAT 97
== END 2024-03-08 14:55 ==
LOC: M INFU 13:18
PROVIDERS: ATTEND Specialist
DX: D50.9 Iron deficiency anemia, unspecified (principal); Z91.018 Allergy to other foods; Z88.1 Allergy status to other antibiotic agents
CPT/HCPCS: 96365; J1756

== ENCOUNTER → 2024-03-08 | Outpatient (REF) | payer OTHER ==
[~2024-03-08] MED LIST changes: -HYDR-3910 PO; +HYDR25TA87 PO; +LORA-1041 PO; +OMEP-173; +OXYC1TAB23 PO
== END ==
LOC: M LAB REF 14:03
PROVIDERS: ATTEND Nurse Practitioner Family
DX: R19.7 Diarrhea, unspecified (principal)

== ENCOUNTER → 2024-03-11 | Outpatient (CLI) | payer OTHER ==
[~2024-03-11] MED LIST changes: +ISOVUE-370 76% 100ML VIAL As Ordered ONE
== END ==
LOC: M RAD 11:01
PROVIDERS: ATTEND Nurse Practitioner Family
DX: D50.9 Iron deficiency anemia, unspecified (principal); I70.0 Atherosclerosis of aorta; R16.0 Hepatomegaly, not elsewhere classified; K76.0 Fatty (change of) liver, not elsewhere classified; R16.1 Splenomegaly, not elsewhere classified
CPT/HCPCS: 74174; Q9967

== ENCOUNTER → 2024-03-20 | Outpatient (CLI) | payer OTHER ==
[~2024-03-20] MED LIST changes: -ISOVUE-370 76% 100ML VIAL As Ordered ONE
== END ==
LOC: M RAD 09:43
PROVIDERS: ATTEND Otolaryngology
DX: E04.1 Nontoxic single thyroid nodule (principal)

== ENCOUNTER 2024-03-22 12:20 | Outpatient (CLI) | payer OTHER ==
[~2024-03-22] VITALS: Ht 154.9 cm; Wt 70.5 kg
[2024-03-22 12:20] VITALS: BP 169/77; O2SAT 99
[2024-03-22] MEDS: ACETAMINOPHEN TAB 650MG DOSE (2X325MG) PO ONE (12:29)
[2024-03-22] MEDS ORDERED: diphenhydrAMINE 25MG CAP PO ONE (12:30)
[2024-03-22] MEDS: IRON SUCROSE 100 MG in NS 95 ML IV ONE (12:43)
== END 2024-03-22 13:45 | disposition home or self-care (01) ==
LOC: M INFU 12:20
PROVIDERS: ATTEND Specialist
DX: D50.9 Iron deficiency anemia, unspecified (principal); Z88.1 Allergy status to other antibiotic agents; Z91.018 Allergy to other foods
CPT/HCPCS: 96365; J1756

== ENCOUNTER 2024-03-29 12:35 | Outpatient (CLI) | payer OTHER ==
[~2024-03-29] VITALS: Ht 149.9 cm; Wt 73.0 kg
[2024-03-29 12:35] VITALS: BP 165/72; O2SAT 97
[~2024-03-29 12:35] MED LIST changes: +diphenhydrAMINE 25MG PO PRIOR TO INFUSION PO ONE
[2024-03-29] MEDS: ACETAMINOPHEN 650MG PO PRIOR TO INFUSION PO ONE (12:45)
[2024-03-29] MEDS: IRON SUCROSE 100 MG in NS 95 ML IV ONE (13:10)
[2024-03-29 14:05] VITALS: BP 131/64; O2SAT 98
== END 2024-03-29 14:15 | disposition home or self-care (01) ==
LOC: M INFU 12:35
PROVIDERS: ATTEND Specialist
DX: D50.9 Iron deficiency anemia, unspecified (principal); Z91.018 Allergy to other foods; Z88.1 Allergy status to other antibiotic agents
CPT/HCPCS: 96365; J1756

== ENCOUNTER → 2024-08-02 | Outpatient (REF) | payer OTHER ==
[~2024-08-02] MED LIST changes: -diphenhydrAMINE 25MG PO PRIOR TO INFUSION PO ONE
== END ==
LOC: M LAB REF 14:30
PROVIDERS: ATTEND Nurse Practitioner Family
DX: R19.7 Diarrhea, unspecified (principal)

== ENCOUNTER → 2024-08-02 | Outpatient (CLI) | payer OTHER ==
[2024-08-02 14:44] LABS: HEMATOCRIT 35.3 % (36.0-47.0); HEMOGLOBIN 11.8 g/dl (12.0-15.5); MEAN CORPUSCULAR HEMOGLOBIN 30.4 pg (27.0-33.0); MEAN CORPUSCULAR HGB CONC 33.4 g/dl (32.0-36.5); PLATELET COUNT, AUTOMATED 193 10^3/uL (150-450); RED BLOOD COUNT 3.88 10^6/uL (4.00-5.40); WHITE BLOOD COUNT 6.6 10^3/uL (4.0-10.0)
[2024-08-02 15:12] LABS: BLOOD UREA NITROGEN 19 MG/DL (9-23); CREATININE FOR GFR 0.73 MG/DL (0.55-1.30); GLOMERULAR FILTRATION RATE > 60.0 (>45); IRON (FE) 73 UG/DL (50-170); PERCENT SATURATION 17.3 % (13.2-45.0); TOTAL IRON BINDING CAPACITY 421 UG/DL (250-425)
[2024-08-02 15:14] LABS: FERRITIN 67.6 NG/ML (7.3-270.7)
== END ==
LOC: M LAB 14:14
PROVIDERS: ATTEND Internal Medicine Gastroenterology
DX: D50.9 Iron deficiency anemia, unspecified (principal)

== ENCOUNTER → 2024-08-13 | Outpatient (CLI) | payer OTHER ==
[~2024-08-13] MED LIST changes: +ISOVUE-370 76% 100ML VIAL ONE
== END ==
LOC: M PLAIMG 11:01
PROVIDERS: ATTEND Surgery
DX: D48.19 Other specified neoplasm of uncertain behavior of connective and other soft tissue (principal)
CPT/HCPCS: 73701; Q9967

== ENCOUNTER → 2024-08-30 | Outpatient (CLI) | payer OTHER ==
[~2024-08-30] MED LIST changes: -ISOVUE-370 76% 100ML VIAL ONE
== END ==
LOC: M RAD 12:50
PROVIDERS: ATTEND Internal Medicine Pulmonary Disease
DX: Z12.2 Encounter for screening for malignant neoplasm of respiratory organs (principal); Z87.891 Personal history of nicotine dependence

== ENCOUNTER 2024-10-28 08:10 | Day surgery (SDC) | payer OTHER ==
[~2024-10-28] VITALS: Ht 152.4 cm; Wt 67.8 kg
[~2024-10-28 08:10] MED LIST changes: +AZEL137S8 NARES; -CYCL5TAB PO; +CYCL5TAB4 PO; +HYDR50TA46 PO; -OMEP-173; +OMEP-173 PO; +TELM1TAB37 PO; +THERTAB52 PO; +VASC1CAP2 PO
[2024-10-28] MEDS ORDERED: GLUCAGON INJ 1MG VIAL As Ordered ONE (11:07)
[2024-10-28] MEDS ORDERED: LIDOCAINE 2% 100MG/5ML SDV (FOR ANES.) As Ordered ONE (11:27)
[2024-10-28] MEDS ORDERED: propofoL 200 MG/20 ML VIAL As Ordered ONE (11:27)
[2024-10-28] MEDS ORDERED: ePHEDrine SULFATE 25 MG/5 ML(5MG/ML) SYRINGE As Ordered ONE (11:33)
[2024-10-28 11:46] VITALS: TEMP 97.7
[2024-10-28 12:13] VITALS: BP 147/65; O2SAT 95
== END 2024-10-28 12:21 | disposition home or self-care (01) ==
LOC: M OPP 08:10
PROVIDERS: ATTEND Internal Medicine Gastroenterology
DX: D50.9 Iron deficiency anemia, unspecified (principal); D12.0 Benign neoplasm of cecum; D17.5 Benign lipomatous neoplasm of intra-abdominal organs; K57.30 Diverticulosis of large intestine without perforation or abscess without bleeding; K64.8 Other hemorrhoids; Z98.0 Intestinal bypass and anastomosis status; K31.89 Other diseases of stomach and duodenum; K31.819 Angiodysplasia of stomach and duodenum without bleeding; K26.9 Duodenal ulcer, unspecified as acute or chronic, without hemorrhage or perforation; I10 Essential (primary) hypertension; E78.5 Hyperlipidemia, unspecified; E11.9 Type 2 diabetes mellitus without complications; K21.9 Gastro-esophageal reflux disease without esophagitis; M19.90 Unspecified osteoarthritis, unspecified site; J43.9 Emphysema, unspecified; G47.33 Obstructive sleep apnea (adult) (pediatric); Z99.89 Dependence on other enabling machines and devices; Z85.43 Personal history of malignant neoplasm of ovary; Z88.1 Allergy status to other antibiotic agents; Z91.018 Allergy to other foods; Z79.85 Long-term (current) use of injectable non-insulin antidiabetic drugs; Z79.899 Other long term (current) drug therapy; Z80.0 Family history of malignant neoplasm of digestive organs
CPT/HCPCS: 43239; 43255; 45385; 88305; J1610

== ENCOUNTER 2025-01-07 06:08 | Day surgery (SDC) | payer OTHER ==
[~2025-01-07] VITALS: Ht 154.9 cm; Wt 68.6 kg
[~2025-01-07 06:08] MED LIST changes: +ICOS1CAP PO
[2025-01-07] MEDS ORDERED: NS (Normal Saline) 0.9% 1,000 ML IV SCH ×2 (06:15→10:15)
[2025-01-07] MEDS ORDERED: TIRZ2.5P PO (06:38)
[2025-01-07] MEDS ORDERED: LR 1,000 ML IV ONE (06:40)
[2025-01-07] MEDS ORDERED: dexmedeTOMIDine (4MCG/ML)200MCG/50ML BTL (PRECEDEX) As Ordered ONE (07:31)
[2025-01-07] MEDS ORDERED: MIDAZOLAM INJ 2MG/2ML VIAL As Ordered ONE (07:31)
[2025-01-07] MEDS ORDERED: LIDOCAINE 2% 100MG/5ML SDV (FOR ANES.) As Ordered ONE (07:31)
[2025-01-07] MEDS ORDERED: fentaNYL 250 MCG/5 ML INJECTION As Ordered ONE (07:31)
[2025-01-07] MEDS ORDERED: propofoL 200 MG/20 ML VIAL As Ordered ONE (07:31)
[2025-01-07] MEDS ORDERED: ROCURONIUM BROMIDE 50MG/5ML VIAL As Ordered ONE (07:44)
[2025-01-07] MEDS ORDERED: LACRILUBE (AKWA TEARS) OPHTH OINT 3.5GM As Ordered ONE (07:48)
[2025-01-07] MEDS: ceFAZolin SOD 2 GM in IV 1 EA IV ONE (08:14)
[2025-01-07] MEDS: GENTAMICIN SULF 80MG/2ML VIAL As Ordered ONE (08:32)
[2025-01-07] MEDS ORDERED: ONDANSETRON 4MG 2ML VIAL As Ordered ONE (08:34)
[2025-01-07] MEDS ORDERED: METOCLOPRAMIDE INJ 10MG/2ML VIAL As Ordered ONE (08:34)
[2025-01-07] MEDS ORDERED: SUGAMMADEX SODIUM 500 MG/5 ML VIAL (BRIDION) As Ordered ONE (08:34)
[2025-01-07] MEDS ORDERED: ACETAMINOPHEN 1000MG/100ML IV BAG As Ordered ONE (08:51)
[2025-01-07] MEDS ORDERED: PHENYLephrine 500MCG 5ML (100MCG/ML) SYRINGE As Ordered ONE (09:20)
[2025-01-07] MEDS ORDERED: ePHEDrine SULFATE 25 MG/5 ML(5MG/ML) SYRINGE As Ordered ONE (09:20)
[2025-01-07] MEDS: BUPivacaine LIPOSOME/PF 266MG 20ML VIAL (13.3MG/ML)(EXPAREL) As Ordered ONE (09:36)
[2025-01-07] MEDS ORDERED: ONDANSETRON 4MG 2ML VIAL IV PRN (10:15)
[2025-01-07] MEDS ORDERED: oxyCODONE 5MG TAB PO PRN (10:15)
[2025-01-07] MEDS ORDERED: fentaNYL 100 MCG/2 ML INJECTION IV PRN (10:15)
[2025-01-07] MEDS ORDERED: HYDROMORPHONE HCL 0.5 MG/ 0.5 ML SYRINGE IV PRN (10:15)
[2025-01-07] MEDS ORDERED: TRAM50TA2 PO (10:36)
[2025-01-07] MEDS: INSULIN LISPRO (NovoLOG) PER UNIT SC PRN (10:41)
[2025-01-07 11:15] VITALS: BP 136/69; TEMP 97.2; O2SAT 96
== END 2025-01-07 11:46 | disposition home or self-care (01) ==
LOC: M SDC 06:08
PROVIDERS: ATTEND Plastic Surgery Surgery of the Hand
DX: D17.23 Benign lipomatous neoplasm of skin and subcutaneous tissue of right leg (principal); E11.9 Type 2 diabetes mellitus without complications; I10 Essential (primary) hypertension; J43.9 Emphysema, unspecified; E78.00 Pure hypercholesterolemia, unspecified; K21.9 Gastro-esophageal reflux disease without esophagitis; Z79.899 Other long term (current) drug therapy; Z79.84 Long term (current) use of oral hypoglycemic drugs; Z79.85 Long-term (current) use of injectable non-insulin antidiabetic drugs; Z85.43 Personal history of malignant neoplasm of ovary; G47.30 Sleep apnea, unspecified; Z90.710 Acquired absence of both cervix and uterus; Z91.018 Allergy to other foods; Z88.1 Allergy status to other antibiotic agents; Z90.49 Acquired absence of other specified parts of digestive tract; Z87.19 Personal history of other diseases of the digestive system; Z86.16 Personal history of COVID-19
CPT/HCPCS: 27337; 88307; J0131; J0665; J0666; J0690; J1580; J2250; J2371; J2405; J2765; J3010

== ENCOUNTER 2025-08-27 10:45 | Observation (INO) | payer MEDICARE, OTHER ==
[~2025-08-27] VITALS: Ht 154.9 cm; Wt 67.0 kg
[~2025-08-27 10:45] MED LIST changes: +CYAN250T5 PO; +LISI40TA10 PO; -LISI40TA4 PO; -PRAV40TA2; +PRAV40TA85; +TIRZ2.5P PO; +TRAM50TA2 PO; -VITA250T7 PO
[2025-08-27] MEDS: NS (Normal Saline) 0.9% 1,000 ML IV ONE ×2 (11:43→13:08)
[2025-08-27 11:44] LABS: BASO # 0.1 10^3/uL (0.0-0.2); BASO % 1.0 % (0.0-1.0); EOS # 0.2 10^3/uL (0.0-0.5); EOS % 3.3 % (0.0-3.0); LYMPH # 1.8 10^3/uL (1.5-5.0); LYMPH % 27.5 % (24.0-44.0); MONO # 0.4 10^3/uL (0.0-0.8); MONO % 5.5 % (2.0-8.0); NEUTROPHILS # 4.2 10^3/uL (1.5-8.5); NEUTROPHILS % 62.4 % (36.0-66.0); PLATELET COUNT, AUTOMATED 298 10^3/uL (150-450)
[2025-08-27 12:10] LABS: ALT/SGPT 42.0 U/L (7.0-40); AST/SGOT 46.0 U/L (<34); CALCIUM LEVEL 10.0 MG/DL (8.3-10.6); CARBON DIOXIDE LEVEL 15.0 MMOL/L (20-31); CHLORIDE LEVEL 108.0 MMOL/L (98-107); CREATININE FOR GFR 1.72 MG/DL (0.55-1.30); GLOMERULAR FILTRATION RATE 32.6 (>45); POTASSIUM SERUM 5.7 MMOL/L (3.5-5.1); SODIUM LEVEL 138.0 MMOL/L (136-145)
[2025-08-27] MEDS: HumuLIN R (REGULAR) INSULIN (NovoLIN R) **100 U/ML** PER UNIT IV ONE (13:03)
[2025-08-27] MEDS: DEXTROSE 50% 50 ML SYRINGE IV ONE (13:03)
[2025-08-27 13:16] LABS: KETONE, URINE AUTO RFX NEGATIVE (NEGATIVE); NITRITE, URINE AUTO RFX NEGATIVE (NEGATIVE); RBC, URINE AUTO RFX 1 /HPF (0-3); SQUAM EPITHELIAL CELL UR AURFX 1 /HPF (0-6); WBC, URINE AUTO RFX 7 /HPF (0-3)
[2025-08-27 13:18] LABS: LEUKOCYTE ESTERASE UR AUTO RFX TRACE (NEGATIVE)
[2025-08-27] MEDS ORDERED: METF-877 PO (13:26)
[2025-08-27] MEDS ORDERED: KP F1200 PO (13:26)
[2025-08-27] MEDS ORDERED: HOME MED LIST COMPLETE! XX SCH (13:30)
[2025-08-27] MEDS ORDERED: APAP325T4 PO (13:34)
[2025-08-27] MEDS ORDERED: ONDANSETRON 4MG 2ML VIAL IV PRN (14:35)
[2025-08-27] MEDS ORDERED: GLUCAGON INJ 1 MG VIAL SC PRN (14:50)
[2025-08-27] MEDS ORDERED: GLUCOSE 4 GM CHEW PO PRN (14:50)
[2025-08-27] MEDS ORDERED: DEXTROSE 50% 50 ML SYRINGE IV PRN (14:50)
[2025-08-27] MEDS: PINK BISMUTH SUSP 524 MG/30 ML ORAL SYRINGE PO SCH (14:53)
[2025-08-27] MEDS: LR 1,000 ML IV SCH (15:52)
[2025-08-27] MEDS: INSULIN LISPRO (NovoLOG) PER UNIT SC SCH ×2 (17:30→21:00)
[2025-08-27 20:19] VITALS: BP 178/82; TEMP 98.1; O2SAT 96
[2025-08-27 21:44] LABS: ALT/SGPT 36 U/L (7.0-40); AST/SGOT 45 U/L (<34); CALCIUM LEVEL 9.1 MG/DL (8.3-10.6); CARBON DIOXIDE LEVEL 15 MMOL/L (20-31); CHLORIDE LEVEL 115 MMOL/L (98-107); CREATININE FOR GFR 1.04 MG/DL (0.55-1.30); GLOMERULAR FILTRATION RATE 59.7 (>45); MAGNESIUM LEVEL 1.5 MG/DL (1.8-2.4); POTASSIUM SERUM 5.5 MMOL/L (3.5-5.1); SODIUM LEVEL 142 MMOL/L (136-145)
[2025-08-27] MEDS: GABAPENTIN 100 MG CAP PO SCH (21:48)
[2025-08-27] MEDS: OMEPRAZOLE 20MG CAP PO SCH (21:48)
[2025-08-27] MEDS: HEPARIN SOD 5000 UNITS/ML 1 ML VIAL/SYRINGE SC SCH (21:48)
[2025-08-27 21:49] VITALS: BP 164/78
[2025-08-27] MEDS: **hydrALAZINE HCL** 25 MG TAB PO ONE (21:49)
[2025-08-27] MEDS: ACETAMINOPHEN 325 MG TAB PO PRN (21:50)
[2025-08-28] VITALS: BP 158/73; TEMP 97.2; O2SAT 97
[2025-08-28 04:21] VITALS: BP 136/65; TEMP 97.9; O2SAT 97
[2025-08-28 06:07] LABS: PLATELET COUNT, AUTOMATED 214 10^3/uL (150-450)
[2025-08-28 06:28] LABS: CALCIUM LEVEL 9.4 MG/DL (8.3-10.6); CARBON DIOXIDE LEVEL 16.0 MMOL/L (20-31); CHLORIDE LEVEL 114.0 MMOL/L (98-107); CREATININE FOR GFR 0.83 MG/DL (0.55-1.30); GLOMERULAR FILTRATION RATE 78.2 (>45); MAGNESIUM LEVEL 1.4 MG/DL (1.8-2.4); POTASSIUM SERUM 5.5 MMOL/L (3.5-5.1); SODIUM LEVEL 143.0 MMOL/L (136-145)
[2025-08-28] MEDS: FAMOTIDINE 20 MG/2 ML VIAL IVP SCH (08:48)
[2025-08-28] MEDS: ATORVASTATIN 20 MG TAB PO SCH (08:48)
[2025-08-28] MEDS: NS 0.45% 1,000 ML IV SCH (09:58)
[2025-08-28] MEDS: DEXTROSE 50% 50 ML SYRINGE IV STA (09:59)
[2025-08-28] MEDS: HumuLIN R (REGULAR) INSULIN (NovoLIN R) **100 U/ML** PER UNIT IV STA (09:59)
[2025-08-28] MEDS: MAG SULF 1GM/100ML (MAG RUN) 1 GM in IV 1 EA IV SCH (09:59)
[2025-08-28] MEDS: SOD POLYSTYRENE SULFONATE SUSP 15GM 60ML UD PO ONE (11:40)
[2025-08-28 11:44] VITALS: BP 142/66; TEMP 97.9; O2SAT 97
[2025-08-28 14:48] LABS: CALCIUM LEVEL 9.8 MG/DL (8.3-10.6); CARBON DIOXIDE LEVEL 17 MMOL/L (20-31); CHLORIDE LEVEL 112 MMOL/L (98-107); CREATININE FOR GFR 0.69 MG/DL (0.55-1.30); GLOMERULAR FILTRATION RATE > 90.0 (>45); POTASSIUM SERUM 5.2 MMOL/L (3.5-5.1); SODIUM LEVEL 143 MMOL/L (136-145)
[2025-08-28] MEDS ORDERED: ONDA-282 PO (14:51)
[2025-08-28] MEDS ORDERED: AZIT500T5 PO (14:51)
== END 2025-08-28 17:29 | disposition home or self-care (01) ==
LOC: M ED 10:45 → M ED INP 10:46 → M MSPAV 20:11
PROVIDERS: ADMIT Student in an Organized Health Care Education/Training Program; ATTEND Student in an Organized Health Care Education/Training Program
DX: N17.9 Acute kidney failure, unspecified (principal); E87.5 Hyperkalemia; A04.0 Enteropathogenic Escherichia coli infection; E11.9 Type 2 diabetes mellitus without complications; I10 Essential (primary) hypertension; E78.5 Hyperlipidemia, unspecified; G47.33 Obstructive sleep apnea (adult) (pediatric); J43.9 Emphysema, unspecified; Z87.891 Personal history of nicotine dependence; E86.0 Dehydration; K21.9 Gastro-esophageal reflux disease without esophagitis; Z79.84 Long term (current) use of oral hypoglycemic drugs; Z79.899 Other long term (current) drug therapy; Z88.1 Allergy status to other antibiotic agents; Z91.018 Allergy to other foods
CPT/HCPCS: 36415; 74176; 80047; 80048; 80053; 80076; 81001; 82270; 83605; 83690; 83735; 85025; 85027; 87088; 87186; 87507; 93005; 96361; 96372; 96374; 96375; 96376; 99285; G0378; J1308; J1815; J3475

== ENCOUNTER → 2025-10-01 | Outpatient (CLI) | payer MEDICARE ==
[~2025-10-01] MED LIST changes: +APAP325T4 PO; +AZIT500T5 PO; +KP F1200 PO; +METF-877 PO; +ONDA-282 PO
== END ==
LOC: M RAD 12:33
PROVIDERS: ATTEND Internal Medicine Pulmonary Disease
DX: Z87.891 Personal history of nicotine dependence (principal)

== ENCOUNTER → 2025-10-08 | Outpatient (CLI) | payer MEDICARE, OTHER | LOC: M RAD 12:21 | PROVIDERS: ATTEND Otolaryngology | DX: E04.1 Nontoxic single thyroid nodule (principal) ==

== ENCOUNTER 2025-10-17 07:01 | Day surgery (SDC) | payer MEDICARE ==
[~2025-10-17] VITALS: Ht 154.9 cm; Wt 67.1 kg
[~2025-10-17 07:01] MED LIST changes: +THC GUMMY PO
[2025-10-17] MEDS ORDERED: LIDOCAINE 2% 100 MG/5 ML SDV (FOR ANES.) As Ordered ONE (08:39)
[2025-10-17] MEDS ORDERED: GLYCOPYRROLATE INJ 0.2 MG/ML 2 ML VIAL As Ordered ONE (08:39)
[2025-10-17 09:06] VITALS: TEMP 97.3
[2025-10-17 09:18] VITALS: BP 165/83; O2SAT 96
== END 2025-10-17 09:20 | disposition home or self-care (01) ==
LOC: M OPP 07:01
PROVIDERS: ATTEND Internal Medicine Gastroenterology
DX: K63.5 Polyp of colon (principal); D17.5 Benign lipomatous neoplasm of intra-abdominal organs; R19.7 Diarrhea, unspecified; E78.00 Pure hypercholesterolemia, unspecified; E11.9 Type 2 diabetes mellitus without complications; D50.9 Iron deficiency anemia, unspecified; G47.30 Sleep apnea, unspecified; Z79.899 Other long term (current) drug therapy; Z88.1 Allergy status to other antibiotic agents; Z90.710 Acquired absence of both cervix and uterus; Z91.018 Allergy to other foods; Z86.0101 Personal history of adenomatous and serrated colon polyps
CPT/HCPCS: 45380; 45385; 88305; J1596